=== PATIENT | female | born 1925 | race Caucasian/White ===

== ENCOUNTER 2016-04-14 21:29 | Inpatient (IN) | payer MEDICARE, BC ==
[~2016-04-14] VITALS: Ht 170.2 cm; Wt 105.4 kg
[~2016-04-14 21:29] MED LIST: ACET325T33 PO; CELE200C PO; CLON-379 PO; DIAZ-90 PO; DOCU-144 PO; DOXA1TAB38 PO; DULR PR; ESCI20TA PO; HYDR-3498 PO; IPRA3AMP HHN; LACT20SO2 PO; LISI40TA9 PO; MAGN400O4 PO; MULTI PO; NA P133E3 PR; OXYC-481 PO; RANI150T9 PO; TIZA4TAB PO; TRAZ100T15 PO; WARF6TAB35 PO
[2016-04-14] MEDS ORDERED: NACL 0.9% 3 ML SYG IV SCH (22:00)
[2016-04-14] MEDS ORDERED: BISACODYL 10 MG SUPP PR PRN (22:00)
[2016-04-14] MEDS ORDERED: oxyCODONE 5 MG TAB PO PRN ×2 (22:00)
[2016-04-14] MEDS ORDERED: MAGNESIUM HYDROXIDE 30ML CUP PO PRN (22:00)
[2016-04-14] MEDS ORDERED: HYDROmorphONE 1 MG/ML SYG IV PRN (22:00)
[2016-04-14] MEDS ORDERED: DIPHENHYDRAMINE 25 MG CAP PO PRN (22:00)
[2016-04-14] MEDS ORDERED: ONDANSETRON 4 MG INJ IV PRN (22:00)
[2016-04-14] MEDS ORDERED: NA PHOSPHATE/BIPHOS 133 ML ENEMA PR PRN (22:00)
[2016-04-14 23:30] VITALS: BP 168/72; RESP 20
[2016-04-15] MEDS ORDERED: HYDROmorphONE 2 MG TAB PO PRN (00:30)
[2016-04-15] MEDS: traMADol 50 MG TAB PO SCH ×4 (01:03→17:59)
[2016-04-15] MEDS: DOCUSATE SODIUM 100 MG CAP PO SCH ×3 (01:03→21:10)
[2016-04-15 03:27] LABS: ADD UMIC NO; URINE BILIRUBIN (Dip) NEGATIVE (NEGATIVE); URINE BLOOD (Dip) NEGATIVE (NEGATIVE); URINE COLOR LT. YELLOW (YELLOW); URINE GLUCOSE (Dip) NEGATIVE (NEGATIVE); URINE KETONES (Dip) NEGATIVE (NEGATIVE); URINE LEUKOCYTE ESTERASE (Dip) NEGATIVE (NEGATIVE); URINE NITRITE (Dip) NEGATIVE (NEGATIVE); URINE TOTAL PROTEIN (Dip) NEGATIVE (NEGATIVE); URINE UROBILINOGEN (Dip) 0.2 E.U./dL (0.1-1.0)
[2016-04-15] MEDS: PANTOPRAZOLE (EC) 40 MG TAB PO SCH ×2 (05:44→17:59)
--- NOTE | 2016-04-15 08:05 | HP ---
Date/Time of Note Date/Time of Note DATE: 04/15/16 TIME: 07:50 Assessment/Plan VTE Prophylaxis VTE Prophylaxis Intervention: LMWH Lines/Catheters IV Catheter Type (from [facility]): Saline Lock Urinary Cath still in place: Yes Reason Cath still needed: urinary retention Assessment/Plan Problems: (1) Fall Status: Acute Comment: Patient had a fall yesterday. It is unclear whether the left hip is fractured based on the contrary readings from the other radiologist. We have the disc at and I will have our radiologist review. However to be on the safe side I am also ordering this MRI scan of the left hip to make sure that we do not have a fracture. Given the prior history of postoperative pulmonary emboli that she will be in bed will be using Lovenox. Please note this patient has had several falls and I am again question the wisdom of allowing her to go home with her daughter Qualifiers: Encounter type: initial encounter Qualified Code: W19.XXXA - Fall, initial encounter (2) Morbid obesity Status: Chronic Comment: She will be on a calorie restricted diet Qualifiers: Obesity type: due to excess calories Qualified Code: E66.01 - Morbid obesity due to excess calories (3) Postoperative pulmonary embolism Status: Resolved Comment: Given the history that she will be on Lovenox Qualifiers: Encounter type: subsequent encounter Qualified Code: T81.718D - Postoperative pulmonary embolism, subsequent encounter (4) Diastolic dysfunction Status: Chronic Comment: Noted she is on beta-blockade (5) COPD (chronic obstructive pulmonary disease) Status: Chronic Comment: Noted she is stable Qualifiers: COPD type: emphysema Emphysema type: centrilobular Qualified Code: 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 At this time she will not be on medications although in the future Forteo might be a consideration if she was going to be ambulatory which is unlikely (8) Hyperlipidemia Status: Chronic Comment: The possibility exists that the statins are causing some degree of weakness and weakness based on prior experience with this woman. We will withhold statins for the moment Qualifiers: Hyperlipidemia type: pure hypercholesterolemia Qualified Code: E78.00 - Pure hypercholesterolemia (9) Migraine syndrome Status: Chronic Comment: In active (10) Moderate late onset dysthymic disorder, in partial remission, with anxious distress, with intermittent major depressive episodes, without current episode Status: Chronic Comment: Noted she will be on treatment (11) Chronic pain syndrome Status: Chronic Comment: We will continue with analgesic relief (12) UTI (urinary tract infection) Status: Acute Comment: She has a history of resistant bacteria we will recheck her culture at this time Qualifiers: Urinary tract infection type: acute cystitis Hematuria presence: without hematuria Qualified Code: N30.00 - Acute cystitis without hematuria HPI/ROS Admit Date/Time Admit Date/Time Apr 14, 2016 at 23:16 Hx of Present Illness 89-year-old female who with a history of multiple falls and ambulatory instability who went home against suggestion from the medical team in the past. She was last discharged from our acute rehabilitation unit on March 01, 2016. She had been at home and she reports that her legs gave out from under her and she fell to her left hand side with injury to the area of the hip. She did not have any syncope or loss of consciousness palpitations chest pain or shortness of breath. She was taken by paramedics to [facility]. At that facility initial plain x-rays read the possibility of perhaps a fracture of the hip. Subsequent CT scan was not revealing nor was it of the back. Orthopedics was contacted and and transferred the patient to this facility for care. Please note we not contacted by the orthopedist on our first contact with the nurses calling for orders ROS Constitutional: no complaints Eyes: no complaints ENT: no complaints Respiratory: no complaints Cardiovascular: no complaints Gastrointestinal: no complaints Genitourinary: no complaints Musculoskeletal: back pain, other (Complains of pain in the hip area on the left-hand side) Skin: no complaints Neurologic: no complaints Endocrine: no complaints Lymphatic: no complaints Psychological: anxiety, depression Immunologic: no complaints PMH/Family/Social Past Medical History Grade 1 diastolic dysfunction; morbid obesity; migraine syndrome; osteoporosis; dysthymia with anxiety; chronic pain syndrome; COPD grade 1 Medical History: GERD, high cholesterol, hypertension Past Surgical History Status post blepharoplasty; status post D and C 4; status post 2; status post laparotomy for ruptured ectopic ; status post right shoulder arthroscopy; 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 This that she has had an accelerating rate of falls at home. Alcohol Use: rarely Smoking Status: Former smoker Drug Use: none Exam/Review of Systems Vital Signs Vitals Vital Signs Date Time Temp Pulse Resp B/P Pulse Ox O2 Delivery O2 Flow Rate FiO2 04/14/16 23:30 98.4 71 20 168/72 94 Intake and Output 04/14/16 04/14/16 04/15/16 15:00 23:00 07:00 Intake Total 480 ml Output Total 400 ml Balance 80 ml Exam Exam Awake and alert but sad woman lying in bed Constitutional: alert, oriented Psych: depression Head: atraumatic, normocephalic Eyes: EOMI, nl conjunctiva, nl lids, nl sclera ENMT: mucosa pink and moist, nl external ears & nose, nl lips & teeth, nl nasal mucosa & septum Neck: non-tender, other (Midline trachea no thyromegaly no bruits), supple Respiratory: clear to auscultation, normal air movement Cardiovascular: nl pulses, regular rate and rhythm Gastrointestinal: nl liver, spleen, non-tender, soft Genitourinary - Female: other (Poe catheter in place) Musculoskeletal: other (No clubbing cyanosis or edema please see the dictation of Dr. cee et al for the hip exam) Extremities: normal pulses Neurological: BED AND BREAKFAST OPERATOR II-XII intact, nl mental status, nl speech, nl strength Skin: nl turgor, other (No visible bruises), rash or lesions Lymph: nl lymph nodes Medications Medications Current Medications Tramadol HCl (Ultram) 50 mg Q6 PO Last administered on 04/15/16t 05:44; Admin Dose 50 MG; Start 04/15/16 at 00:00; Stop 04/17/16 at 23:59 Hydromorphone HCl (Dilaudid) 1 mg Q3H PRN IV PAIN LEVEL 8-10; Start 04/14/16 at 22:00 Ondansetron HCl (Zofran Inj) 4 mg Q6H PRN IV NAUSEA AND/OR VOMITING; Start at 22:00 Bisacodyl (Dulcolax Supp) 10 mg Q12H PRN [place] CONSTIPATION; Start 1/20/17 at 22: 00 Magnesium Hydroxide (Milk Of Mag) 30 ml BID PRN PO CONSTIPATION; Start at 22:00 Sodium Biphosphate/ Sodium Phosphate (Fleet Enema) 133 ml DAILY PRN [place] CONSTIPATION; Start 04/14/16 at 22:00 Docusate Sodium (Colace) 100 mg BID PO ; Start 04/14/16 at 21:00 Diphenhydramine HCl (Benadryl) 25 mg Q6H PRN PO PRURITUS; Start 04/14/16 at 22: 00 Pantoprazole (Protonix Tab) 40 mg BID@06,18 PO Last administered on 04/15/16t 05:44; Admin Dose 40 MG; Start 04/15/16 at 06:00 Atenolol (Tenormin) 50 mg DAILY PO ; Start 04/15/16 at 09:00 Trazodone HCl (Desyrel) 100 mg HS PO ; Start 04/15/16 at 21:00 Diazepam (Valium) 5 mg Q12 PO ; Start 04/15/16 at 09:00 Tizanidine HCl (Zanaflex) 4 mg TID PO ; Start 04/15/16 at 09:00 Escitalopram Oxalate (Lexapro) 20 mg DAILY PO ; Start 04/15/16 at 09:00 Hydromorphone HCl (Dilaudid) 2 mg Q4H PRN PO PAIN; Start 04/15/16 at 00:30 GONZALES OSMAN MD Apr 15, 2016 08:00
[2016-04-15] MEDS: DIAZEPAM 5 MG TAB PO SCH ×2 (08:07→21:09)
[2016-04-15] MEDS: ESCITALOPRAM 10 MG TAB PO SCH (08:07)
[2016-04-15] MEDS: TIZANIDINE 4 MG TAB PO SCH ×3 (08:07→21:10)
[2016-04-15 08:13] VITALS: BP 186/77; RESP 72
[2016-04-15] MEDS ORDERED: ATENOLOL 50 MG TAB PO SCH (09:00)
[2016-04-15] MEDS ORDERED: ESCITALOPRAM 10 MG TAB PO SCH (09:00)
[2016-04-15 09:43] VITALS: Ht 170.2 cm; Wt 105.4 kg
[2016-04-15 10:00] VITALS: BP 156/80; PULSE 88; RESP 20
[2016-04-15] MEDS: LISINOPRIL 20 MG TAB PO SCH (10:13)
[2016-04-15] MEDS: ENOXAPARIN 40 MG/0.4 ML SYG SC SCH ×2 (10:22→21:16)
--- NOTE | 2016-04-15 15:12 | HP ---
DATE OF ADMISSION: 04/14/2016 HISTORY OF PRESENT ILLNESS: This is an 89-year-old female who is well known to Dr. Nguyễn and myself, who had a mechanical fall yesterday, out of bed, at home. The patient states that she was in her home hospital bed and she fell out of the bed, landing onto her left side. No KO or head injury was reported. She denies any chest pain or shortness of breath prior to the fall. 911 was called and the patient was transported to [facility]. We received a phone call from the ER that the patient had a hip fracture. We requested imaging; however, the patient and her daughter were demanding to be transferred to [facility]. The patient apparently had a CT done in the ER as well, which was read a negative for any fractures. Transport was arranged and we are now seeing the patient for Orthopedic evaluation. PAST MEDICAL HISTORY: Morbid obesity, postoperative pulmonary embolism, diastolic dysfunction, COPD, essential hypertension, osteoporosis, hyperlipidemia, migraines, chronic pain syndrome, history of UTI. ALLERGIES: PENICILLIN, CLARITHROMYCIN, LATEX, WELL IV DYE. MEDICATIONS: Please refer to the Nurse Med Reconciliation Form. SURGICAL HISTORY: The patient had a revision right TKA at the end of last year , by Dr. Nguyễn. SOCIAL HISTORY: The patient lives at home with her daughter. There have been reports from Home Health agencies that the home is dirty and there is significant hoarding. She denies any smoking or alcohol use. REVIEW OF SYSTEMS: All other systems are negative, except for those described in the HPI. PHYSICAL EXAMINATION: VITAL SIGNS; Initial blood pressure 168/72, heart rate of 71, respirations 20, temperature 98.4, O2 sat is 94% on room air. GENERAL: This is a well-developed, elderly female who is morbidly obese, in no acute distress. HEENT: Normocephalic, atraumatic. NECK: Supple. CARDIOVASCULAR: Regular rate and rhythm. No murmurs, rubs, or gallops. CHEST: Clear to auscultation bilaterally. ABDOMEN: Soft, nontender. BACK: She has no CVA tenderness, no palpable step-offs. MUSCULOSKELETAL: Right knee exam demonstrates her previous incision to be clean , dry, and well healed. Range of motion of the right knee is adequate. There is no ecchymosis or obvious deformities noted. She is holding her hip in slight external rotation; however, there is no shortening. Her right hip range of motion, with flexion and internal and external rotation, is adequate. Exam of the left hip, demonstrates adequate range of motion. There is no shortening or external rotation noted. I am able to flex her left hip, as well as internally and externally rotate it, without any pain. The patient is able to perform a straight-leg raise. The compartments are soft. Neurovascular status is intact distally. NEUROLOGIC: Alert and oriented x4. Grossly intact and nonfocal. SKIN: Otherwise warm, pink, and dry. IMAGING: I was unable to view the x-rays from [facility] ER; however, did find a CT report. The report read no acute displaced fracture or dislocation. There is diffuse osteopenia which limits the assessment of an insufficiency and/or stress fracture. If there is continued clinical concern, recommended a follow up with MRI or bone scan. X-rays of the AP pelvis, as well as AP and lateral of the left hip were obtained at [facility] and reviewed by me. There is no obvious evidence of a fracture or dislocation. Diffuse osteopenia is noted. There is a calcified ossicle on the greater trochanter; however, clinical suspicion for fracture, radiographically, is low. DISCUSSION: This is an 89-year-old female who was transferred to [facility] after a mechanical fall. The patient has had multiple falls in the past and there was concern, as well as a diagnosis by the ER physician at [facility], of a left hip fracture. Radiographically, on plain films, the patient has no evidence of a fracture or dislocation. Clinically, she is able to range the left hip adequately, which also lowers suspicion for any occult fracture. A CT was done at an outside facility, which demonstrated no obvious fractures or dislocations. The study was somewhat limited, per the radiologist due to diffuse osteopenia. Dr. Cassius Juárez did evaluate the patient as well and has ordered an MRI. We will go ahead and perform the MRI, to ensure that there is no occult left hip fracture, although clinical suspicion is low at this time. Additionally, Economic Research Assistant have been consulted. The patient has had multiple falls in the past. She is essentially bed-bound and her living situation is less than ideal. This has been reported by several Home Health staff members in the past, and we want to rule out any sort of negligence at this time. The patient will continue with continue with Lovenox, per Dr. Juárez's order as well as SCDs for DVT prophylaxis, given her history of pulmonary emboli. We will obtain the MRI of the left hip. I will discuss this with Dr. Nguyễn, who is also aware of the patient's fall. Ultimately, we will have to make a decision in regard to the patient's safety going home, or if would be better managed at a [facility] facility. Dictated By: VALDEMAR HITCHCOCK for FREDRICK HUGHES/ANU Conf#: [id number] DID#: [id number] MTDD
--- NOTE | 2016-04-15 18:57 | RADRPT ---
PROCEDURE: MRI of the left hip CLINICAL INDICATION: Fall with pain in the left hip. TECHNIQUE: Noncontrast MRI of the left hip, with axial, sagittal and coronal images. T1-weighted, T2-weighted, proton density and fat saturation techniques were employed. COMPARISON: Plain film left hip dated 04/15/2016. FINDINGS: No acute fracture dislocation within the left hip. No evident avascular necrosis. Left hip joint c ompartment is substantially preserved. Soft tissues unremarkable. Remaining partially visualized osseous structures of the pelvis, sacrum and right hip are also witho ut acute fracture. Partially visualized right hip with suspected mild joint compartment narrowing and small marginal os teophytes. IMPRESSION: No acute fracture. RPTAT: [facility] Physician Espinoza Date Time Electronically viewed and signed by Physician Espinoza on 04/15/2016 18:56 RS/
[2016-04-15 20:26] VITALS: BP 143/64; RESP 20
--- NOTE | 2016-04-15 20:46 | RADRPT ---
PROCEDURE: XR Left Hip. CLINICAL INDICATION: Left hip injury with suspected fracture. TECHNIQUE: Single AP view of the left hip. COMPARISON: None. FINDINGS: Demineralization limits evaluation of fine osseous detail. Normal joint alignment is identified. No acute fracture or osseous lesion is identified. There are no significant degenerative changes in the hip. Vascular calcifications. Soft tissues otherwise unremarkable. IMPRESSION: Demineralization, and otherwise, no evident acute fracture in the left hip. RPTAT: [facility] Physician Espinoza Date Time Electronically viewed and signed by Physician Espinoza on 04/15/2016 20:46 RS/
--- NOTE | 2016-04-15 20:47 | RADRPT ---
PROCEDURE: Pelvis x-ray CLINICAL INDICATION: Suspected fracture. TECHNIQUE: Single AP view of the pelvis performed. COMPARISON: 10/18/2015. FINDINGS: Demineralization limits evaluation of fine osseous detail. No fracture or osseous lesion identified. There are no significant degenerative changes. Uterine fibroids are likely present. Possible impacted stool in the rectum. Soft tissues otherwise unremarkable. IMPRESSION: No acute fracture or subluxation. RPTAT: [facility] Physician Espinoza Date Time Electronically viewed and signed by Physician Espinoza on 04/15/2016 20:47 RS/
[2016-04-15] MEDS ORDERED: traZODone 100 MG TAB PO SCH (21:00)
[2016-04-15] MEDS: traZODone 100 MG TAB PO SCH (21:10)
[2016-04-15] MEDS: METOPROLOL (XL) 50 MG TAB PO SCH (21:11)
--- NOTE | 2016-04-15 21:51 | RADRPT ---
PROCEDURE: XR Left Hip. CLINICAL INDICATION: Fracture. TECHNIQUE: AP and frog lateral views of the left hip were performed. COMPARISON: 04/15/2016 FINDINGS: There is mild demineralization and normal alignment. No acute fracture or osseous lesion is identified. There are no significant degenerative changes in the hip. The soft tissues are unremarkable. Arteriovascular calcifications are identified. IMPRESSION: No acute fracture or dislocation. Mild osteopenia. Hip fractures may be occult to x-ray imaging and CT or MRI may be considered for further evaluation if there is high clinical suspicion for fracture. RPTAT:AAJJ Janett De Paz Physician Date Time Electronically viewed and signed by Physician Nils on 04/15/2016 21:51 PATRICK/
--- NOTE | 2016-04-15 21:54 | RADRPT ---
PROCEDURE: XR Knee. CLINICAL INDICATION: s/p fall, h/o right TKA TECHNIQUE: AP, lateral and oblique view of the right knee were obtained. The images reviewed on a PACS workstation. COMPARISON: None. FINDINGS: Intact total knee prosthesis. Osseous fragments along the posterior tibia were present on the prior x-rays postoperative series 02/08/2016 no new fracture or dislocation. IMPRESSION: Intact total knee prosthesis. No new or acute fracture. RPTAT:AAJJ Physician Nils Date Time Electronically viewed and signed by Physician Nils on 04/15/2016 21:53 PATRICK/
[2016-04-16] MEDS: traMADol 50 MG TAB PO SCH ×4 (03:40→19:02)
[2016-04-16] MEDS: PANTOPRAZOLE (EC) 40 MG TAB PO SCH ×2 (06:40→19:01)
--- NOTE | 2016-04-16 07:15 | PN ---
Date/Time of Note Date/Time of Note DATE: 04/16/16 TIME: 07:12 Assessment/Plan VTE Prophylaxis VTE Prophylaxis Intervention: LMWH, SCD's Lines/Catheters IV [facility] Saline Lock Urinary Cath still in place: Yes Reason Cath still needed: other (indicate) (Removing it today) Assessment/Plan Problems: (1) History of pulmonary embolism Status: Resolved Comment: This is a historical note. As I now know that she does not have a hip fracture I am going to discontinue the Lovenox she will use SCDs except for while she is ambulating her physical therapy is working with her (2) Chronic pain syndrome Status: Chronic Comment: Noted and stable. (3) Moderate late onset dysthymic disorder, in partial remission, with anxious distress, with intermittent major depressive episodes, without current episode Status: Chronic Comment: She is on medications for this. (4) Hyperlipidemia Status: Chronic Comment: As noted in the original history and physical Qualifiers: Hyperlipidemia type: pure hypercholesterolemia Qualified Code: E78.00 - Pure hypercholesterolemia (5) Essential hypertension Status: Chronic Comment: Well-controlled (6) Hypertension Status: Chronic Comment: As above Qualifiers: Hypertension type: essential hypertension Qualified Code: I10 - Essential hypertension (7) Diastolic dysfunction Status: Chronic Comment: She is on beta-blockade which is the appropriate maneuver here. Given the history of reported lung disease a cardioselective beta phuc metoprolol is the best choice with second choice being nebivolol Subjective 24 Hr Interval Summary Free Text/Dictation Patient reports she is tired and has some left-sided pain. Constitutional: no complaints Eyes: no complaints ENT: no complaints Respiratory: no complaints Cardiovascular: no complaints Gastrointestinal: no complaints Musculoskeletal: other (Left-sided pain at the hip) Exam/Review of Systems Vital Signs Vitals Vital Signs Date Time Temp Pulse Resp B/P Pulse Ox O2 Delivery O2 Flow Rate FiO2 04/15/16 20:26 98.7 64 20 143/64 91 Intake and Output 04/15/16 04/15/16 04/16/16 15:00 23:00 07:00 Intake Total 1300 ml 120 ml Output Total 725 ml 400 ml Balance 575 ml -280 ml Exam Constitutional: alert, oriented Neck: non-tender, supple Respiratory: clear to auscultation, normal air movement Cardiovascular: nl pulses, regular rate and rhythm Gastrointestinal: nl liver, spleen, non-tender, soft Medications Medications Current Medications Tramadol HCl (Ultram) 50 mg Q6 PO Last administered on 04/16/16 03:40; Admin Dose 50 MG; Start 04/15/16 at 00:00; Stop 04/17/16 at 23:59 Hydromorphone HCl (Dilaudid) 1 mg Q3H PRN IV PAIN LEVEL 8-10; Start 04/14/16 at 22:00 Ondansetron HCl (Zofran Inj) 4 mg Q6H PRN IV NAUSEA AND/OR VOMITING; Start at 22:00 Bisacodyl (Dulcolax Supp) 10 mg Q12H PRN [place] CONSTIPATION; Start 04/14/16 at 22: 00 Magnesium Hydroxide (Milk Of Mag) 30 ml BID PRN PO CONSTIPATION; Start at 22:00 Sodium Biphosphate/ Sodium Phosphate (Fleet Enema) 133 ml DAILY PRN [place] CONSTIPATION; Start 04/14/16 at 22:00 Docusate Sodium (Colace) 100 mg BID PO Last administered on 04/15/16 21:10; Admin Dose 100 MG; Start 04/14/16 at 21:00 Diphenhydramine HCl (Benadryl) 25 mg Q6H PRN PO PRURITUS; Start 04/14/16 at 22: 00 Pantoprazole (Protonix Tab) 40 mg BID@06,18 PO Last administered on 04/16/16 06:40; Admin Dose 40 MG; Start 04/15/16 at 06:00 Diazepam (Valium) 5 mg Q12 PO Last administered on 04/15/16 21:09; Admin Dose 5 MG; Start 04/15/16 at 09:00 Tizanidine HCl (Zanaflex) 4 mg TID PO Last administered on 04/15/16 21:10; Admin Dose 4 MG; Start 04/15/16 at 09:00 Escitalopram Oxalate (Lexapro) 20 mg DAILY PO Last administered on 04/15/16 08 :07; Admin Dose 20 MG; Start 04/15/16 at 09:00 Hydromorphone HCl (Dilaudid) 2 mg Q4H PRN PO PAIN; Start 04/15/16 at 00:30 Enoxaparin Sodium (Lovenox) 40 mg BID SC Last administered on 04/15/16 21:16; Admin Dose 40 MG; Start 04/15/16 at 09:00 Metoprolol Succinate (Toprol Xl) 50 mg BID PO Last administered on 04/15/16 21 :11; Admin Dose 50 MG; Start 04/15/16 at 21:00 Lisinopril (Zestril) 20 mg DAILY PO Last administered on 04/15/16 10:13; Admin Dose 20 MG; Start 04/15/16 at 09:00 Trazodone HCl (Desyrel) 150 mg HS PO Last administered on 04/15/16 21:10; Admin Dose 150 MG; Start 04/15/16 at 21:00 GONZALES OSMAN MD Apr 16, 2016 07:14
[2016-04-16 08:12] VITALS: BP 151/63; RESP 18
[2016-04-16] MEDS: ESCITALOPRAM 10 MG TAB PO SCH (09:13)
[2016-04-16] MEDS: DOCUSATE SODIUM 100 MG CAP PO SCH ×2 (09:14→21:25)
[2016-04-16] MEDS: LISINOPRIL 20 MG TAB PO SCH (09:14)
[2016-04-16] MEDS: METOPROLOL (XL) 50 MG TAB PO SCH ×2 (09:14→21:25)
[2016-04-16] MEDS: DIAZEPAM 5 MG TAB PO SCH ×2 (09:14→21:00)
[2016-04-16] MEDS: TIZANIDINE 4 MG TAB PO SCH ×3 (09:15→21:26)
--- NOTE | 2016-04-16 11:35 | PN ---
Date/Time of Note Date/Time of Note DATE: 04/16/16 TIME: 11:24 Assessment/Plan Lines/Catheters IV Catheter Type (from Nrsg): Saline Lock Poe in Place (from Nrsg): Yes Assessment/Plan Assessment/Plan Stable s/p fall, no evidence of hip fracture -encouraged blood draw, physical therapy, and medical compliance as she has been refusing everything -daughter continues to be very difficult. top and trim worker will speak with the daughter as there is concern about patient safety at home. APS report filed. -from an orthopedic standpoint, there is no evidence of fracture and she is stable for d/c or transfer -spoke to Dr. Nguyễn who is aware and agrees to the treatment plan -d/c planning home versus other terminal gauger care facility. TBD after ABSTRACT CLERK eval and speaking with medicine team Subjective 24 Hr Interval Summary No acute overnight events. XR, MRI, CT all negative for hip fx. Daughter continues to be difficult. Patient complains of pain all over and is still refusing labs, PT or any other therapeutive modalities. APS filed with medical social worker Exam/Review of Systems Vital Signs Vitals Vital Signs Date Time Temp Pulse Resp B/P Pulse Ox O2 Delivery O2 Flow Rate FiO2 04/16/16 08:12 99.0 70 18 151/63 90 Intake and Output 04/15/16 04/15/16 04/16/16 15:00 23:00 07:00 Intake Total 1300 ml 120 ml Output Total 725 ml 400 ml Balance 575 ml -280 ml Exam Free Text/Dictation Hip flexion with internal/external rotation within normal limits 4/5 Quadriceps, Tibialis Anterior, EHL, Gastroc, Soleus, Peroneals Normal sensation Palpable DT/PT, CR <2 sec No distal edema VALDEMAR MARTIN PA-C Apr 16, 2016 11:35
[2016-04-16 11:45] VITALS: BP 148/64; PULSE 64; RESP 16
[2016-04-16 12:07] LABS: POTASSIUM 4.4 mmol/L (3.5-5.1)
[2016-04-16 12:09] LABS: CREATININE 1.21 mg/dl (0.44-1.00)
[2016-04-16 12:11] LABS: CALCIUM 10.3 mg/dl (8.4-10.2)
[2016-04-16 12:12] LABS: HEMATOCRIT 40.8 % (37.0-47.0); HEMOGLOBIN 13.3 g/dl (12.0-16.0)
[2016-04-16 19:28] VITALS: BP 134/59; RESP 20
[2016-04-16] MEDS: traZODone 100 MG TAB PO SCH (21:00)
[2016-04-16 23:48] VITALS: BP 129/58; RESP 18
[2016-04-17] MEDS: traMADol 50 MG TAB PO SCH ×5 (05:46→20:56)
[2016-04-17] MEDS: PANTOPRAZOLE (EC) 40 MG TAB PO SCH ×2 (05:46→18:00)
[2016-04-17 08:15] VITALS: BP 123/48; RESP 18
--- NOTE | 2016-04-17 08:39 | PDOCDIS ---
Discharge Instructions DIAGNOSIS Discharge Diagnosis: left hip pain s/p fall CONDITION Patient Condition: Guarded HOME CARE INSTRUCTIONS: Diet Instructions: Regular ACTIVITY: Activity Restrictions: Slowly Increase Activity Rest between Activity Avoid heavy lifting Do not operate Machinery Do not operate Power Tool Avoid Heavy Housework Bathing Restrictions: Shower FOLLOW UP/APPOINTMENTS Appointments follow up with Dr. Nguyễn in the office next week VALDEMAR MARTIN PA-C Apr 17, 2016 08:39
--- NOTE | 2016-04-17 08:45 | PN ---
Date/Time of Note Date/Time of Note DATE: 04/17/16 TIME: 08:40 Assessment/Plan VTE Prophylaxis VTE Prophylaxis Intervention: SCD's Lines/Catheters IV Catheter Type (from Nrs): Saline Lock Urinary Cath still in place: Yes Reason Cath still needed: other (indicate) (Discontinue today) Assessment/Plan Problems: (1) History of pulmonary embolism Status: Resolved Comment: Noted no activity (2) Chronic pain syndrome Status: Chronic Comment: Patient remains on analgesic (3) Moderate late onset dysthymic disorder, in partial remission, with anxious distress, with intermittent major depressive episodes, without current episode Status: Chronic Comment: Remains on antidepressant therapy. Her home social situation is a major issue social work is trying to work with her (4) Hyperlipidemia Status: Chronic Comment: On statin Qualifiers: Hyperlipidemia type: pure hypercholesterolemia Qualified Code: E78.00 - Pure hypercholesterolemia (5) Essential hypertension Status: Chronic Comment: Controlled on medicine (6) Diastolic dysfunction Status: Chronic Comment: Controlled on medication (7) COPD (chronic obstructive pulmonary disease) Status: Chronic Comment: Stable Qualifiers: COPD type: emphysema Emphysema type: centrilobular Qualified Code: J43.2 - Centrilobular emphysema (8) Fall Status: Acute Comment: Review by orthopedics as well as the medical team that there is no fracture and she is stable for discharge from an acute care hospital setting Qualifiers: Encounter type: initial encounter Qualified Code: W19.XXXA - Fall, initial encounter Subjective 24 Hr Interval Summary Free Text/Dictation Patient initially denies having seen me before but when I questioned her regarding data I have personally referred to her she does recall this Respiratory: no complaints Cardiovascular: no complaints Gastrointestinal: no complaints Exam/Review of Systems Vital Signs Vitals Vital Signs Date Time Temp Pulse Resp B/P Pulse Ox O2 Delivery O2 Flow Rate FiO2 04/17/16 08:15 98.3 56 18 123/48 96 04/16/16 20:00 Nasal Cannula 2.0 Intake and Output 04/16/16 04/16/16 04/17/16 15:00 23:00 07:00 Intake Total 400 ml 480 ml Output Total 600 ml 800 ml Balance -200 ml -320 ml Exam Constitutional: alert, oriented Neck: non-tender, supple Respiratory: clear to auscultation, normal air movement Cardiovascular: nl pulses, regular rate and rhythm Gastrointestinal: nl liver, spleen, non-tender, soft Results Result Diagram: 04/16/16 1130 04/16/16 1130 Results 24 hrs Laboratory Tests Test 04/16/16 11:30 Anion Gap 13 Blood Urea Nitrogen 32 H Calcium Level 10.3 H Carbon Dioxide Level 29 Chloride Level 101 Creatinine 1.21 H Glucose Level 110 Hematocrit 40.8 Hemoglobin 13.3 Potassium Level 4.4 Sodium Level 139 Medications Medications Current Medications Tramadol HCl (Ultram) 50 mg Q6 PO Last administered on 04/17/16 05:46; Admin Dose 50 MG; Start 04/15/16 at 00:00; Stop 04/17/16 at 23:59 Hydromorphone HCl (Dilaudid) 1 mg Q3H PRN IV PAIN LEVEL 8-10; Start 04/14/16 at 22:00 Ondansetron HCl (Zofran Inj) 4 mg Q6H PRN IV NAUSEA AND/OR VOMITING; Start at 22:00 Bisacodyl (Dulcolax Supp) 10 mg Q12H PRN [place] CONSTIPATION; Start 04/14/16 at 22: 00 Magnesium Hydroxide (Milk Of Mag) 30 ml BID PRN PO CONSTIPATION; Start at 22:00 Sodium Biphosphate/ Sodium Phosphate (Fleet Enema) 133 ml DAILY PRN [place] CONSTIPATION; Start 04/14/16 at 22:00 Docusate Sodium (Colace) 100 mg BID PO Last administered on 04/16/16 21:25; Admin Dose 100 MG; Start 04/14/16 at 21:00 Diphenhydramine HCl (Benadryl) 25 mg Q6H PRN PO PRURITUS; Start 04/14/16 at 22: 00 Pantoprazole (Protonix Tab) 40 mg BID@06,18 PO Last administered on 04/17/16 05:46; Admin Dose 40 MG; Start 04/15/16 at 06:00 Diazepam (Valium) 5 mg Q12 PO Last administered on 04/16/16 09:14; Admin Dose 5 MG; Start 04/15/16 at 09:00 Tizanidine HCl (Zanaflex) 4 mg TID PO Last administered on 04/16/16 21:26; Admin Dose 4 MG; Start 04/15/16 at 09:00 Escitalopram Oxalate (Lexapro) 20 mg DAILY PO Last administered on 04/16/16 09 :13; Admin Dose 20 MG; Start 04/15/16 at 09:00 Hydromorphone HCl (Dilaudid) 2 mg Q4H PRN PO PAIN; Start 04/15/16 at 00:30 Metoprolol Succinate (Toprol Xl) 50 mg BID PO Last administered on 04/16/16 21 :25; Admin Dose 50 MG; Start 04/15/16 at 21:00 Lisinopril (Zestril) 20 mg DAILY PO Last administered on 04/16/16 09:14; Admin Dose 20 MG; Start 04/15/16 at 09:00 Trazodone HCl (Desyrel) 150 mg HS PO Last administered on 04/15/16 21:10; Admin Dose 150 MG; Start 04/15/16 at 21:00 GONZALES OSMAN MD Apr 17, 2016 08:45
--- NOTE | 2016-04-17 08:48 | PN ---
Date/Time of Note Date/Time of Note DATE: 04/17/16 TIME: 08:45 Assessment/Plan Lines/Catheters IV Catheter Type (from Nrsg): Saline Lock Poe in Place (from Nrsg): Yes Assessment/Plan Assessment/Plan Stable s/p fall, no evidence of hip fracture -patient seen and evaluated with Dr. Nguyễn -patient is medically stable from d/c from an orthopedic standpoint -OOB with PT -Will d/c patient home today. Will work with social problems specialist to determine pt d/c home versus [facility] facility Subjective 24 Hr Interval Summary Doing satisfactory. No acute overnight events. EKG unremarkable. Patient is still refusing PT or blood draw. Exam/Review of Systems Vital Signs Vitals Vital Signs Date Time Temp Pulse Resp B/P Pulse Ox O2 Delivery O2 Flow Rate FiO2 04/17/16 08:15 98.3 56 18 123/48 96 04/16/16 20:00 Nasal Cannula 2.0 Intake and Output 04/16/16 04/16/16 04/17/16 15:00 23:00 07:00 Intake Total 400 ml 480 ml Output Total 600 ml 800 ml Balance -200 ml -320 ml Exam Free Text/Dictation No deformities 4/5 Quadriceps, Tibialis Anterior, EHL, Gastroc, Soleus, Peroneals Normal sensation Palpable DT/PT, CR <2 sec No distal edema Results Result Diagram: 04/16/16 1130 04/16/16 1130 VALDEMAR MARTIN PA-C Apr 17, 2016 08:48
[2016-04-17] MEDS ORDERED: CEFAZOLIN 1 GM/50 ML (PMX) 50 ML IVPB SCH (09:00)
--- NOTE | 2016-04-17 09:54 | CONS ---
DATE OF ADMISSION: 04/14/2016 DATE OF CONSULTATION: 04/17/2016 HISTORY OF PRESENT ILLNESS: The patient is an 89-year-old woman well known to me who had a peripros thetic fracture around her right total knee arthroplasty which required revision with a distal femor al replacement. This was revised about 2 months ago. It was revised for some hyperextension instab ility. We lengthened her leg and increased the thickness of the polyethylene insert, which stabiliz ed her knee, but left her with a leg length discrepancy which I knew would occur preoperatively. Th e patient was initially at the acute rehab facility here at [facility] recovering and then was discharged to a residential facility and then to home. She has been home under the care of her daughter and receiving 2 to 3 times a week home physical therapy. The daughter has rip led our office multiple times over the last 4 to 6 weeks, indicating that her mother is struggling w ith rehabilitation. We have asked to have the patient come in to our office on multiple occasions a nd the daughter has been unable to bring the patient to our office. There have been no reported fev ers, chills or wound drainage. A few days ago the patient apparently had a fall at home and was augustina en emergently to [facility]. I was away on vacation. My physician assistant accounting manager commun icated with the emergency room physician who indicated there may be a fracture of the left hip. CT scan and x-rays were reportedly negative, but the patient was nonetheless transported to [facility] where she has been for the last few days. I returned from my vacation today and s een the patient this morning in conjunction with Dr. Paul her consumer loan specialist and hospitalist. The daugh ter is not at the bedside but I did speak to the daughter on the phone this morning. The patient cantu s been refusing physical therapy here at the hospital. Medical workup has been unremarkable. X-ray and MRI of the left hip demonstrate no fracture. The patient is currently lying in bed comfortably this morning and knows who I am and is complaining of no pain. PHYSICAL EXAMINATION: GENERAL: Obese woman in no distress. She is alert and oriented x3. VITAL SIGNS: Her temperature is 98.3. Vital signs are stable. EXTREMITIES: The right lower extremity is longer than the left by about 1.5 cm. Both hips are supp le with 100 degrees of flexion, 35 degrees of external rotation, 15 degrees of internal rotation, no pain or irritability. The right knee has a well-healed midline scar with no redness or warmth. Kathy huddleston does lie with the right lower extremity slightly externally rotated, but when I bring her knee int o full extension the foot is pointing towards the ceiling is in neutral position. Range of motion o f the right knee is 0 to about 85 degrees. There is no varus or valgus instability. The left knee has no effusion, warmth or redness and has no pain with passive range of motion and is stable to rick us and valgus stress testing, anterior drawer and Krzysztof testing. NEUROVASCULAR: Motor strength is 5/5 in the quadriceps, tibialis anterior, extensor hallucis longus , gastroc-soleus, and peroneals bilaterally. Sensation is intact to light touch throughout both lowe r extremities. There are 2+ palpable dorsalis pedis and posterior tibial pulses, with capillary refi ll less than 2 seconds in all 5 digits bilaterally. There is no distal edema. IMAGING: X-rays of the pelvis and left hip demonstrate no obvious fracture. There are no subluxati ons, dislocations or degenerative changes. An MRI of the left hip demonstrates no fracture, bony le eddie, osteonecrosis or degenerative changes. X-rays of the right knee show that the distal femoral replacement remains in good position with no evidence of loosening or fracture around the implant. There are no subluxations or dislocations. LABORATORY DATA: [facility] laboratories reveal a hematocrit of 40.8. ASSESSMENT AND PLAN: 1. Status post fall with no evidence of left hip fracture. 2. Status post revision right total knee arthroplasty. DISCUSSION: She seems to be doing well with no signs of fracture. I spoke with the daughter and ex plained that at this point there is no indication to keep the patient here in the hospital. She nee ds to continue with physical therapy for gait training and ambulatory support and transfer training from bed to wheelchair. We will plan to discharge her today back to home or to a residential fa cility if she has insurance authorization to go to a residential facility for more rehabilitatio n. I have spoken with Dr. Paul who feels there are no medical indications to keep the patient here either. She will follow up with me in the office in 2 weeks for an exam and x-ray. I have indicat ed to the daughter that the patient should be using a walker for ambulatory support and using the sh oe lift on the left side to compensate for the leg length discrepancy. Dictated By: FREDRICK PEREZ MD EZ/NTS Conf#: [id number] DID#: [id number] CC: GONZALES PAUL MD;*EndCC*
--- NOTE | 2016-04-17 09:59 | RADRPT ---
PROCEDURE: XR Tibia and Fibula. CLINICAL INDICATION: s/p fall, h/o right TKA, pain TECHNIQUE: AP, lateral and oblique views of the right tibia and fibula were obtained. COMPARISON: 04/15/2016 x-ray knee FINDINGS: The patient is status post right total knee arthroplasty. Hardware appears intact and in appropriat e position. There is fragmentation along the posterior-superior tibia which is better seen on prior examination. There is patellar resurfacing, and a remaining medial femoral condyle fragment. Ther e is no evidence for acute fracture. There is a small plantar calcaneal spur. There is distal tibia and hind foot demineralization which may reflect disuse osteopenia.. IMPRESSION: Status post right total knee arthroplasty. No evidence for acute fracture or interval change from p rior exam. RPTAT: EE .Ck Moser MD, MD Date Time Electronically viewed and signed by .Ck Moser MD, MD on 04/17/2016 09:58 .T/
--- NOTE | 2016-04-17 10:01 | RADRPT ---
PROCEDURE: XR right femur. CLINICAL INDICATION: Pain/fall. TECHNIQUE: AP and lateral views are available for review. COMPARISON: No comparison available FINDINGS: There is no change in the constrained total knee replacement with a long femoral and tibial stems. T here is no evidence of loosening of the prosthesis. There is diffuse osteopenia. No acute fracture o r dislocation is seen.No osseous lesions are identified. The soft tissues are unremarkable . there is arterial vascular calcification. IMPRESSION: Diffuse osteopenia No change in constrained total knee replacement with a long femoral and tibial stems. No acute fracture identified RPTAT: HGDB .Ruy More MD, Date Time Electronically viewed and signed by .Ruy More MD, on 04/17/2016 10:00 .B/
[2016-04-17] MEDS: DOCUSATE SODIUM 100 MG CAP PO SCH ×2 (10:31→20:54)
[2016-04-17] MEDS: ESCITALOPRAM 10 MG TAB PO SCH (10:31)
[2016-04-17] MEDS: TIZANIDINE 4 MG TAB PO SCH ×3 (10:32→20:56)
[2016-04-17] MEDS: METOPROLOL (XL) 50 MG TAB PO SCH ×2 (10:32→20:56)
[2016-04-17] MEDS: DIAZEPAM 5 MG TAB PO SCH ×2 (10:33→20:56)
[2016-04-17] MEDS: LISINOPRIL 20 MG TAB PO SCH (10:33)
[2016-04-17 11:35] LABS: HEMATOCRIT 40.4 % (37.0-47.0); HEMOGLOBIN 13.3 g/dl (12.0-16.0)
[2016-04-17 11:58] LABS: POTASSIUM 4.3 mmol/L (3.5-5.1)
[2016-04-17 12:01] LABS: CREATININE 1.05 mg/dl (0.44-1.00)
[2016-04-17 12:02] LABS: CALCIUM 10.1 mg/dl (8.4-10.2)
--- NOTE | 2016-04-17 17:48 | PN ---
Date/Time of Note Date/Time of Note DATE: 04/17/16 TIME: 17:44 Assessment/Plan VTE Prophylaxis VTE Prophylaxis Intervention: anti-embolic stocking Lines/Catheters IV Catheter Type (from Nrsg): Saline Lock Urinary Cath still in place: Yes Subjective 24 Hr Interval Summary Free Text/Dictation mrs ribera is well known to us. recent injury at home with no xray or clinical evidence for new fracture. will be discharged in am with home care and ortho follow up Musculoskeletal: back pain, bone/joint pain, neck pain (very sore all over) Exam/Review of Systems Vital Signs Vitals Vital Signs Date Time Temp Pulse Resp B/P Pulse Ox O2 Delivery O2 Flow Rate FiO2 04/17/16 08:15 98.3 56 18 123/48 96 04/16/16 20:00 Nasal Cannula 2.0 Intake and Output 04/16/16 04/16/16 04/17/16 15:00 23:00 07:00 Intake Total 400 ml 480 ml Output Total 600 ml 800 ml Balance -200 ml -320 ml Results Result Diagram: 04/17/16 1115 04/17/16 1115 Results 24 hrs Laboratory Tests Test 04/17/16 11:15 Anion Gap 12 Blood Urea Nitrogen 31 H Calcium Level 10.1 Carbon Dioxide Level 29 Chloride Level 102 Creatinine 1.05 H Glucose Level 133 Hematocrit 40.4 Hemoglobin 13.3 Potassium Level 4.3 Sodium Level 139 Medications Medications Current Medications Tramadol HCl (Ultram) 50 mg Q6 PO Last administered on 04/17/16t 14:28; Admin Dose 50 MG; Start 04/15/16 at 00:00; Stop 04/17/16 at 23:59 Hydromorphone HCl (Dilaudid) 1 mg Q3H PRN IV PAIN LEVEL 8-10; Start 04/14/16 at 22:00 Ondansetron HCl (Zofran Inj) 4 mg Q6H PRN IV NAUSEA AND/OR VOMITING; Start at 22:00 Bisacodyl (Dulcolax Supp) 10 mg Q12H PRN [place] CONSTIPATION; Start 04/14/16 at 22: 00 Magnesium Hydroxide (Milk Of Mag) 30 ml BID PRN PO CONSTIPATION; Start at 22:00 Sodium Biphosphate/ Sodium Phosphate (Fleet Enema) 133 ml DAILY PRN [place] CONSTIPATION; Start 04/14/16 at 22:00 Docusate Sodium (Colace) 100 mg BID PO Last administered on 04/17/16 10:31; Admin Dose 100 MG; Start 04/14/16 at 21:00 Diphenhydramine HCl (Benadryl) 25 mg Q6H PRN PO PRURITUS; Start 04/14/16 at 22: 00 Pantoprazole (Protonix Tab) 40 mg BID@,18 PO Last administered on 04/17/16 05:46; Admin Dose 40 MG; Start 04/15/16 at 06:00 Diazepam (Valium) 5 mg Q12 PO Last administered on 04/17/16 10:33; Admin Dose 5 MG; Start 04/15/16 at 09:00 Tizanidine HCl (Zanaflex) 4 mg TID PO Last administered on 04/17/16 14:28; Admin Dose 4 MG; Start 04/15/16 at 09:00 Escitalopram Oxalate (Lexapro) 20 mg DAILY PO Last administered on 04/17/16 10 :31; Admin Dose 20 MG; Start 04/15/16 at 09:00 Hydromorphone HCl (Dilaudid) 2 mg Q4H PRN PO PAIN; Start 04/15/16 at 00:30 Metoprolol Succinate (Toprol Xl) 50 mg BID PO Last administered on 04/17/16 10 :32; Admin Dose 50 MG; Start 04/15/16 at 21:00 Lisinopril (Zestril) 20 mg DAILY PO Last administered on 04/17/16 10:33; Admin Dose 20 MG; Start 04/15/16 at 09:00 Trazodone HCl (Desyrel) 150 mg HS PO Last administered on 04/15/16 21:10; Admin Dose 150 MG; Start 04/15/16 at 21:00 STEVEN CRAWFORD MD Apr 17, 2016 17:48
[2016-04-17 19:29] VITALS: BP 141/66; RESP 18
[2016-04-17 20:30] VITALS: BP 149/78
[2016-04-17] MEDS: traZODone 100 MG TAB PO SCH (20:57)
--- NOTE | 2016-04-17 22:39 | RADRPT ---
Vent Rate: 59 bpm RR Interval: 0 msec [place] Interval: 216 msec QRS Duration: 108 msec QT Interval: 420 msec QTC Interval: 415 msec P-R-T [place]: 62 - 3 - 73 degrees Sinus bradycardia with 1st degree AV block Septal infarct , age undetermined Abnormal ECG Electronically Signed By: Isak Hastings [id number]
[2016-04-18] VITALS: BP 141/64
[2016-04-18 05:46] LABS: POTASSIUM 4.7 mmol/L (3.5-5.1)
[2016-04-18 05:47] LABS: HEMATOCRIT 42.5 % (37.0-47.0); HEMOGLOBIN 13.8 g/dl (12.0-16.0)
[2016-04-18 05:49] LABS: CALCIUM 10.5 mg/dl (8.4-10.2); CREATININE 1.06 mg/dl (0.44-1.00)
[2016-04-18] MEDS: PANTOPRAZOLE (EC) 40 MG TAB PO SCH ×2 (06:00→17:28)
[2016-04-18 08:04] VITALS: BP 149/65; RESP 18
[2016-04-18] MEDS: ESCITALOPRAM 10 MG TAB PO SCH (08:26)
[2016-04-18] MEDS: TIZANIDINE 4 MG TAB PO SCH ×3 (08:26→21:27)
[2016-04-18] MEDS: DIAZEPAM 5 MG TAB PO SCH ×2 (08:26→21:27)
[2016-04-18] MEDS: DOCUSATE SODIUM 100 MG CAP PO SCH ×2 (08:26→21:27)
[2016-04-18] MEDS: METOPROLOL (XL) 50 MG TAB PO SCH ×2 (08:27→21:29)
[2016-04-18] MEDS: LISINOPRIL 20 MG TAB PO SCH (08:27)
--- NOTE | 2016-04-18 10:25 | PN ---
Date/Time of Note Date/Time of Note DATE: 04/18/16 TIME: 10:22 Assessment/Plan Lines/Catheters IV Catheter Type (from Nrsg): Saline Lock Poe in Place (from Nrsg): Yes Assessment/Plan Assessment/Plan Stable for d/c s/p fall at home. No evidence of hip fracture -Additional XR reviewed, all within normal limits -OOB with PT -d/c planning. Awaiting final authorization from home care physical therapist to d/c home -follow up with the office with Dr. Nguyễn in 2 weeks Subjective 24 Hr Interval Summary No acute overnight events. Reviewed additional XR that were taken which also show no evidence of fracture or dislocation. Awaiting d/c planning per home care physical therapist. Exam/Review of Systems Vital Signs Vitals Vital Signs Date Time Temp Pulse Resp B/P Pulse Ox O2 Delivery O2 Flow Rate FiO2 04/18/16 09:10 Nasal Cannula 2.0 04/18/16 08:04 98.4 59 18 149/65 95 Intake and Output 04/17/16 04/17/16 04/18/16 15:00 23:00 07:00 Intake Total 770 ml 800 ml Output Total 1000 ml 900 ml Balance -230 ml -100 ml Exam Free Text/Dictation Right Knee: Incision clean, dry, and intact without redness or drainage 4/5 Quadriceps, Tibialis Anterior, EHL, Gastroc, Soleus, Peroneals Normal sensation Palpable DT/PT, CR <2 sec No distal edema Left Hip: 4/5 Quadriceps, Tibialis Anterior, EHL, Gastroc, Soleus, Peroneals Normal sensation Palpable DT/PT, CR <2 sec No distal edema Results Result Diagram: 04/18/16 0434 04/18/16 0434 VALDEMAR MARTIN PA-C Apr 18, 2016 10:25
--- NOTE | 2016-04-18 13:14 | PN ---
Date/Time of Note Date/Time of Note DATE: 04/18/16 TIME: 13:09 Assessment/Plan VTE Prophylaxis VTE Prophylaxis Intervention: SCD's Lines/Catheters IV Catheter Type (from Nrs): Saline Lock Urinary Cath still in place: Yes Reason Cath still needed: other (indicate) Assessment/Plan Problems: (1) Fall Status: Acute Comment: She is stable and there is no evidence of any fractures. She is actually not complaining of pain from the area that was reportedly injured when she fell she is complaining of the chronic back pain which is been a very long- term issue. She is receiving adequate analgesia. Attempts are being made to get her to work with physical therapy. Please note that the vital signs reported in the chart by the nursing staff are all normotensive Qualifiers: Encounter type: initial encounter Qualified Code: W19.XXXA - Fall, initial encounter (2) Back pain Status: Chronic Comment: This is been a long-term problem and has not changed there are no acute features going on with this she is gone through multiple orthopedic evaluations Qualifiers: Back pain location: low back pain Chronicity: chronic Back pain laterality: bilateral Sciatica presence: without sciatica Qualified Code: M54.5 - Chronic bilateral low back pain without sciatica (3) Diastolic dysfunction Status: Chronic Comment: Noted and stable on treatment (4) Hypertension Status: Chronic Comment: Noted and stable on treatment. Qualifiers: Hypertension type: essential hypertension Qualified Code: I10 - Essential hypertension (5) Moderate late onset dysthymic disorder, in partial remission, with anxious distress, with intermittent major depressive episodes, without current episode Status: Chronic Comment: This remains an issue for this patient. Unfortunately we have some issues about the home environment which are requiring us to once again fill out an APS referral. Assessment/Plan From medical standpoint this patient is ready to be discharged to a lower level of care. Subjective 24 Hr Interval Summary Constitutional: no complaints Eyes: no complaints ENT: no complaints Respiratory: no complaints Cardiovascular: no complaints (She specifically denies any chest pain palpitations chest pressure or cramping in the chest.) Gastrointestinal: no complaints Musculoskeletal: back pain (Patient reports chronic back pain which is unchanged.) Neurologic: no complaints Exam/Review of Systems Vital Signs Vitals Vital Signs Date Time Temp Pulse Resp B/P Pulse Ox O2 Delivery O2 Flow Rate FiO2 04/18/16 09:10 Nasal Cannula 2.0 04/18/16 08:04 98.4 59 18 149/65 95 Intake and Output 04/17/16 04/17/16 04/18/16 15:00 23:00 07:00 Intake Total 770 ml 800 ml Output Total 1000 ml 900 ml Balance -230 ml -100 ml Exam Constitutional: alert, oriented Respiratory: clear to auscultation, normal air movement Cardiovascular: nl pulses, regular rate and rhythm Gastrointestinal: nl liver, spleen, non-tender, soft Results Result Diagram: 04/18/16 0434 04/18/16 0434 Results 24 hrs Laboratory Tests Test 04/18/16 04:34 Anion Gap 14 Blood Urea Nitrogen 31 H Calcium Level 10.5 H Carbon Dioxide Level 31 Chloride Level 101 Creatinine 1.06 H Glucose Level 102 Hematocrit 42.5 Hemoglobin 13.8 Potassium Level 4.7 Sodium Level 141 Medications Medications Current Medications Hydromorphone HCl (Dilaudid) 1 mg Q3H PRN IV PAIN LEVEL 8-10; Start 04/14/16 at 22:00 Ondansetron HCl (Zofran Inj) 4 mg Q6H PRN IV NAUSEA AND/OR VOMITING; Start at 22:00 Bisacodyl (Dulcolax Supp) 10 mg Q12H PRN [place] CONSTIPATION; Start 04/14/16 at 22: 00 Magnesium Hydroxide (Milk Of Mag) 30 ml BID PRN PO CONSTIPATION; Start at 22:00 Sodium Biphosphate/ Sodium Phosphate (Fleet Enema) 133 ml DAILY PRN [place] CONSTIPATION; Start 04/14/16 at 22:00 Docusate Sodium (Colace) 100 mg BID PO Last administered on 04/18/16 08:26; Admin Dose 100 MG; Start 04/14/16 at 21:00 Diphenhydramine HCl (Benadryl) 25 mg Q6H PRN PO PRURITUS; Start 04/14/16 at 22: 00 Pantoprazole (Protonix Tab) 40 mg BID@06,18 PO Last administered on 04/17/16 05:46; Admin Dose 40 MG; Start 04/15/16 at 06:00 Diazepam (Valium) 5 mg Q12 PO Last administered on 04/18/16 08:26; Admin Dose 5 MG; Start 04/15/16 at 09:00 Tizanidine HCl (Zanaflex) 4 mg TID PO Last administered on 04/18/16 12:14; Admin Dose 4 MG; Start 04/15/16 at 09:00 Escitalopram Oxalate (Lexapro) 20 mg DAILY PO Last administered on 04/18/16 08 :26; Admin Dose 20 MG; Start 04/15/16 at 09:00 Hydromorphone HCl (Dilaudid) 2 mg Q4H PRN PO PAIN; Start 04/15/16 at 00:30 Metoprolol Succinate (Toprol Xl) 50 mg BID PO Last administered on 04/18/16 08 :27; Admin Dose 50 MG; Start 04/15/16 at 21:00 Lisinopril (Zestril) 20 mg DAILY PO Last administered on 04/18/16 08:27; Admin Dose 20 MG; Start 04/15/16 at 09:00 Trazodone HCl (Desyrel) 150 mg HS PO Last administered on 04/17/16 20:57; Admin Dose 150 MG; Start 04/15/16 at 21:00 GONZALES OSMAN MD Apr 18, 2016 13:14
[2016-04-18] MEDS: traMADol 50 MG TAB PO PRN (17:28)
[2016-04-18 18:03] VITALS: BP 158/74; RESP 19
[2016-04-18 19:56] VITALS: BP 142/66; RESP 18
[2016-04-18] MEDS: traZODone 100 MG TAB PO SCH (21:27)
[2016-04-18 21:33] VITALS: BP 162/78; PULSE 64
[2016-04-18 23:14] VITALS: BP 117/64; PULSE 56
[2016-04-19 05:17] LABS: HEMATOCRIT 41.1 % (37.0-47.0); HEMOGLOBIN 13.6 g/dl (12.0-16.0)
[2016-04-19 05:28] LABS: POTASSIUM 4.3 mmol/L (3.5-5.1)
[2016-04-19 05:30] LABS: CREATININE 0.89 mg/dl (0.44-1.00)
[2016-04-19 05:31] LABS: CALCIUM 10.3 mg/dl (8.4-10.2)
[2016-04-19] MEDS: PANTOPRAZOLE (EC) 40 MG TAB PO SCH ×2 (05:50→17:46)
[2016-04-19 07:54] VITALS: BP 140/62; RESP 29
[2016-04-19] MEDS: ESCITALOPRAM 10 MG TAB PO SCH (08:52)
[2016-04-19] MEDS: TIZANIDINE 4 MG TAB PO SCH ×3 (08:52→20:27)
[2016-04-19] MEDS: DOCUSATE SODIUM 100 MG CAP PO SCH ×2 (08:52→20:28)
[2016-04-19] MEDS: DIAZEPAM 5 MG TAB PO SCH ×2 (08:52→20:25)
[2016-04-19] MEDS: LISINOPRIL 20 MG TAB PO SCH (08:53)
[2016-04-19] MEDS: METOPROLOL (XL) 50 MG TAB PO SCH ×2 (08:53→20:27)
[2016-04-19] MEDS: traMADol 50 MG TAB PO PRN ×2 (10:41→20:27)
--- NOTE | 2016-04-19 14:06 | PN ---
Date/Time of Note Date/Time of Note DATE: 04/19/16 TIME: 14:04 Assessment/Plan VTE Prophylaxis VTE Prophylaxis Intervention: heparin Lines/Catheters IV [facility]from [facility] Saline Lock Urinary Cath still in place: Yes Reason Cath still needed: other (indicate) Assessment/Plan Problems: (1) Fall Status: Acute Comment: Patient has had a fall but fortunately does not have any fractures. She is ready for discharge. The patient and her daughter have appealed to Medicare were awaiting the outcome of that. At this time she is doing well although she is not cooperating with physical therapy Qualifiers: Encounter type: initial encounter Qualified Code: W19.XXXA - Fall, initial encounter (2) Morbid obesity Status: Chronic Comment: On calorie restriction Qualifiers: Obesity type: due to excess calories Qualified Code: E66.01 - Morbid obesity due to excess calories (3) Hypertension Status: Chronic Comment: Well-controlled Qualifiers: Hypertension type: essential hypertension Qualified Code: I10 - Essential hypertension (4) Diastolic dysfunction Status: Chronic Comment: Stable on current medication regimen (5) Moderate late onset dysthymic disorder, in partial remission, with anxious distress, with intermittent major depressive episodes, without current episode Status: Chronic Comment: On treatment (6) Chronic pain syndrome Status: Chronic Comment: Stable on treatment without offered complaints Subjective 24 Hr Interval Summary Free Text/Dictation Patient sitting up in bed drinking coffee. States "what are you doing here" patient reports she is here because Dr. cee has things for her to do Constitutional: no complaints Respiratory: no complaints Cardiovascular: no complaints Gastrointestinal: no complaints Genitourinary: no complaints Exam/Review of Systems Vital Signs Vitals Vital Signs Date Time Temp Pulse Resp B/P Pulse Ox O2 Delivery O2 Flow Rate FiO2 04/19/16 07:54 98.0 62 29 140/62 96 04/18/16 20:00 Nasal Cannula 2.0 Intake and Output 04/18/16 04/18/16 04/19/16 15:00 23:00 07:00 Intake Total 720 ml 580 ml Output Total 600 ml 400 ml Balance 120 ml 180 ml Exam Constitutional: alert, oriented Respiratory: clear to auscultation, normal air movement Cardiovascular: nl pulses, regular rate and rhythm Gastrointestinal: nl liver, spleen, non-tender, soft Results Result Diagram: 04/19/16 0430 04/19/16 0430 Results 24 hrs Laboratory Tests Test 04/19/16 04:30 Anion Gap 12 Blood Urea Nitrogen 27 H Calcium Level 10.3 H Carbon Dioxide Level 30 Chloride Level 102 Creatinine 0.89 Glucose Level 108 Hematocrit 41.1 Hemoglobin 13.6 Potassium Level 4.3 Sodium Level 140 Medications Medications Current Medications Hydromorphone HCl (Dilaudid) 1 mg Q3H PRN IV PAIN LEVEL 8-10; Start 04/14/16 at 22:00 Ondansetron HCl (Zofran Inj) 4 mg Q6H PRN IV NAUSEA AND/OR VOMITING; Start at 22:00 Bisacodyl (Dulcolax Supp) 10 mg Q12H PRN MA CONSTIPATION; Start 04/14/16 at 22: 00 Magnesium Hydroxide (Milk Of Mag) 30 ml BID PRN PO CONSTIPATION; Start at 22:00 Sodium Biphosphate/ Sodium Phosphate (Fleet Enema) 133 ml DAILY PRN MA CONSTIPATION; Start 04/14/16 at 22:00 Docusate Sodium (Colace) 100 mg BID PO Last administered on 04/19/16 08:52; Admin Dose 100 MG; Start 04/14/16 at 21:00 Diphenhydramine HCl (Benadryl) 25 mg Q6H PRN PO PRURITUS; Start 04/14/16 at 22: 00 Pantoprazole (Protonix Tab) 40 mg BID@06,18 PO Last administered on 04/18/16 17:28; Admin Dose 40 MG; Start 04/15/16 at 06:00 Diazepam (Valium) 5 mg Q12 PO Last administered on 04/19/16 08:52; Admin Dose 5 MG; Start 04/15/16 at 09:00 Tizanidine HCl (Zanaflex) 4 mg TID PO Last administered on 04/19/16 12:49; Admin Dose 4 MG; Start 04/15/16 at 09:00 Escitalopram Oxalate (Lexapro) 20 mg DAILY PO Last administered on 04/19/16 08 :52; Admin Dose 20 MG; Start 04/15/16 at 09:00 Hydromorphone HCl (Dilaudid) 2 mg Q4H PRN PO PAIN; Start 04/15/16 at 00:30 Metoprolol Succinate (Toprol Xl) 50 mg BID PO Last administered on 04/19/16 08 :53; Admin Dose 50 MG; Start 04/15/16 at 21:00 Lisinopril (Zestril) 20 mg DAILY PO Last administered on 04/19/16 08:53; Admin Dose 20 MG; Start 04/15/16 at 09:00 Trazodone HCl (Desyrel) 150 mg HS PO Last administered on 04/18/16 21:27; Admin Dose 150 MG; Start 04/15/16 at 21:00 Tramadol HCl (Ultram) 50 mg Q6H PRN PO PAIN LEVEL 4-6 Last administered on 04/19 10:41; Admin Dose 50 MG; Start 04/18/16 at 17:30 GONZALES OSMAN MD Apr 19, 2016 14:06
[2016-04-19 20:22] VITALS: BP 148/68; RESP 20
[2016-04-19] MEDS: traZODone 100 MG TAB PO SCH (20:25)
[2016-04-20] MEDS: PANTOPRAZOLE (EC) 40 MG TAB PO SCH (06:41)
[2016-04-20 07:40] VITALS: BP 194/84; RESP 57
--- NOTE | 2016-04-20 08:40 | PN ---
Date/Time of Note Date/Time of Note DATE: 04/20/16 TIME: 08:39 Assessment/Plan VTE Prophylaxis VTE Prophylaxis Intervention: other Lines/Catheters IV [facility] ([facility] Saline Lock Urinary Cath still in place: No Assessment/Plan Chief Complaint/Hosp Course This creates an unusual situation. The patient was actually admitted under the auspices of Dr. cee. As she is dismissed our group specifically while awake competent not having received any type of mind altering or sensorium clouding medications we must sign off Problems: Subjective 24 Hr Interval Summary Free Text/Dictation Patient reports that she wishes to terminate medical relationship with our group that would be Dr. Shah, Beverly, Susanne etc. Exam/Review of Systems Vital Signs Vitals Vital Signs Date Time Temp Pulse Resp B/P Pulse Ox O2 Delivery O2 Flow Rate FiO2 04/20/16 07:40 98.8 59 57 194/84 95 04/18/16 20:00 Nasal Cannula 2.0 Intake and Output 04/19/16 04/19/16 04/20/16 15:00 23:00 07:00 Intake Total 730 ml 400 ml Output Total 800 ml 460 ml Balance -70 ml -60 ml Exam Refuses examination Results Result Diagram: 04/19/16 0430 04/19/16 0430 Medications Medications Current Medications Hydromorphone HCl (Dilaudid) 1 mg Q3H PRN IV PAIN LEVEL 8-10; Start 04/14/16 at 22:00 Ondansetron HCl (Zofran Inj) 4 mg Q6H PRN IV NAUSEA AND/OR VOMITING; Start at 22:00 Bisacodyl (Dulcolax Supp) 10 mg Q12H PRN [place] CONSTIPATION; Start 04/14/16 at 22: 00 Magnesium Hydroxide (Milk Of Mag) 30 ml BID PRN PO CONSTIPATION; Start at 22:00 Sodium Biphosphate/ Sodium Phosphate (Fleet Enema) 133 ml DAILY PRN PA CONSTIPATION; Start 04/14/16 at 22:00 Docusate Sodium (Colace) 100 mg BID PO Last administered on 04/19/16t 20:28; Admin Dose 100 MG; Start 04/14/16 at 21:00 Diphenhydramine HCl (Benadryl) 25 mg Q6H PRN PO PRURITUS; Start 04/14/16 at 22: 00 Pantoprazole (Protonix Tab) 40 mg BID@06,18 PO Last administered on 04/20/16 06:41; Admin Dose 40 MG; Start 04/15/16 at 06:00 Diazepam (Valium) 5 mg Q12 PO Last administered on 04/19/16 20:25; Admin Dose 5 MG; Start 04/15/16 at 09:00 Tizanidine HCl (Zanaflex) 4 mg TID PO Last administered on 04/19/16 20:27; Admin Dose 4 MG; Start 04/15/16 at 09:00 Escitalopram Oxalate (Lexapro) 20 mg DAILY PO Last administered on 04/19/16 08 :52; Admin Dose 20 MG; Start 04/15/16 at 09:00 Hydromorphone HCl (Dilaudid) 2 mg Q4H PRN PO PAIN; Start 04/15/16 at 00:30 Metoprolol Succinate (Toprol Xl) 50 mg BID PO Last administered on 04/19/16 20 :27; Admin Dose 50 MG; Start 04/15/16 at 21:00 Lisinopril (Zestril) 20 mg DAILY PO Last administered on 04/19/16 08:53; Admin Dose 20 MG; Start 04/15/16 at 09:00 Trazodone HCl (Desyrel) 150 mg HS PO Last administered on 04/19/16 20:25; Admin Dose 150 MG; Start 04/15/16 at 21:00 Tramadol HCl (Ultram) 50 mg Q6H PRN PO PAIN LEVEL 4-6 Last administered on 04/19 20:27; Admin Dose 50 MG; Start 04/18/16 at 17:30 GONZALES OSMAN MD Apr 20, 2016 08:40
[2016-04-20] MEDS: LISINOPRIL 20 MG TAB PO SCH (09:36)
[2016-04-20] MEDS: TIZANIDINE 4 MG TAB PO SCH ×2 (09:37→14:01)
[2016-04-20] MEDS: METOPROLOL (XL) 50 MG TAB PO SCH (09:37)
[2016-04-20] MEDS: DIAZEPAM 5 MG TAB PO SCH (09:37)
[2016-04-20] MEDS: ESCITALOPRAM 10 MG TAB PO SCH (09:38)
[2016-04-20] MEDS: DOCUSATE SODIUM 100 MG CAP PO SCH (09:38)
--- NOTE | 2016-04-20 11:05 | PN ---
Date/Time of Note Date/Time of Note DATE: 04/20/16 TIME: 11:03 Assessment/Plan Lines/Catheters IV Catheter Type (from Nrsg): Saline Lock Poe in Place (from Nrsg): No Assessment/Plan Assessment/Plan s/p fall at home, stable for d/c -spoke with personal care worker who states patient will go home today -does not meet medicare criteria for ARU and has used her allocated SNF visits for the calendar year -d/c home today Subjective 24 Hr Interval Summary No acute overnight events. Stable for discharge today per rifle case repairer. Daughter continues to be difficult with nursing staff, physician staff, and personal care worker about going home. Exam/Review of Systems Vital Signs Vitals Vital Signs Date Time Temp Pulse Resp B/P Pulse Ox O2 Delivery O2 Flow Rate FiO2 04/20/16 07:40 98.8 59 57 194/84 95 04/18/16 20:00 Nasal Cannula 2.0 Intake and Output 04/19/16 04/19/16 04/20/16 15:00 23:00 07:00 Intake Total 730 ml 400 ml Output Total 800 ml 460 ml Balance -70 ml -60 ml Exam Free Text/Dictation Knee: Thigh soft 5/5 Quadriceps, Tibialis Anterior, EHL, Gastroc, Soleus, Peroneals Normal sensation Palpable DT/PT, CR <2 sec No distal edema Hip: 5/5 Quadriceps, Tibialis Anterior, EHL, Gastroc, Soleus, Peroneals Normal sensation Palpable DT/PT, CR <2 sec No distal edema Results Result Diagram: 04/19/16 0430 04/19/16 0430 VALDEMAR MARTIN PA-C Apr 20, 2016 11:05
--- NOTE | 2016-04-22 06:30 | DS ---
DATE OF ADMISSION: 04/14/2016 DATE OF DISCHARGE: 04/20/2016 CONDITION ON DISCHARGE: Guarded but stable. ADMITTING DIAGNOSIS: Rule out left hip fracture. DISCHARGE DIAGNOSIS: Left hip pain status post fall. HOSPITAL COURSE: This is an 89-year-old female who is well known to us who had a mechanical fall at home on 04/14/2016. The patient was transferred via ambulance to [facility] where she was diagnosed with a left hip fracture. The patient's family member requested that she be transferred over to [facility] for definitive management. On 04/15/2016, the patient was directly admitted to [address] for definitive management and treatment. X-rays, MRI and CT scans all were obtained of the left hip and showed no evidence of fracture, however. The patient remained stable throughout her hospital course. The daughter was very difficult throughout. The patient refused daily blood draws as well as physical therapy. On day 3, the patient was deemed clinically stable for discharge from a medical standpoint. Case workers as well as social workers evaluated and consulted in regards to the patient's safety at home. Family said she has had multiple falls at home and they were concerned if she is safe going back. household worker did file an APS report which will be followed up once the patient goes home. She was ultimately discharged on 04/16/2016. Her daughter then filed a Medicare appeal, was requesting continued admission or transfer to a SNF. The patient utilized all of her allocated SNF days for the year. There is no medical reason for her to stay in the hospital any longer. One 04/20/2016, the patient was discharged home via ambulance. LABORATORY ANALYSIS: Upon discharge on 04/19/2016, hemoglobin 13.6, hematocrit 41.1. Chemistry panel: Sodium 140, potassium 4.3, BUN 27, creatinine 0.99, glucose 108, calcium 10.3. DISCHARGE MEDICATIONS: Please review the nurse's medical reconciliation. The patient is to resume all her normal home medications. DISCHARGE INSTRUCTIONS: The patient will be discharged home stable via ambulance in guarded condition. She is to resume her normal diet. Activities include weightbearing as tolerated on the left hip as well as her right knee. She is to resume all of her normal home medications. The patient is to call the office or return to the emergency room for any concerns in regards to the left hip or right knee. She is to follow up in the office with Dr. Nguyễn in 2 weeks. FOLLOWUP: The patient is to follow up with Dr. Nguyễn in the office in 2 weeks from discharge. Dictated By: VALDEMAR HITCHCOCK for FREDRICK HUGHES/ANU Conf#: [id number] DID#: [id number] MTDD
== END 2016-04-20 16:35 | disposition home health service (06) | DRG 914 ==
LOC: MS1 23:16
PROVIDERS: ADMIT Orthopaedic Surgery; ATTEND Orthopaedic Surgery
DX: S79.912A Unspecified injury of left hip, initial encounter (principal); I50.32 Chronic diastolic (congestive) heart failure; N39.0 Urinary tract infection, site not specified; M25.552 Pain in left hip; W06.XXXA Fall from bed, initial encounter; Y92.003 Bedroom of unspecified non-institutional (private) residence as the place of occurrence of the external cause; E66.01 Morbid (severe) obesity due to excess calories; J44.9 Chronic obstructive pulmonary disease, unspecified; I10 Essential (primary) hypertension; M81.0 Age-related osteoporosis without current pathological fracture; M85.861 Other specified disorders of bone density and structure, right lower leg; G43.909 Migraine, unspecified, not intractable, without status migrainosus; E78.5 Hyperlipidemia, unspecified; F34.1 Dysthymic disorder; G89.4 Chronic pain syndrome; F41.8 Other specified anxiety disorders; Z68.36 Body mass index [BMI] 36.0-36.9, adult; Z91.81 History of falling; Z86.711 Personal history of pulmonary embolism; Z96.651 Presence of right artificial knee joint; Z88.3 Allergy status to other anti-infective agents; Z88.0 Allergy status to penicillin; Z91.040 Latex allergy status; Z86.73 Personal history of transient ischemic attack (TIA), and cerebral infarction without residual deficits; Z87.440 Personal history of urinary (tract) infections
CPT/HCPCS: 72170; 73500; 73550; 73560; 73590; 73721; 80048; 81003; 85014; 85018; 87081; 87086; 93005; 97110; 97161; 97530; J0690; J1650

== ENCOUNTER → 2016-06-14 | Outpatient (CLI) | payer MEDICARE, BC ==
[~2016-06-14] MED LIST changes: -OXYC-481 PO; -WARF6TAB35 PO
--- NOTE | 2016-06-14 12:11 | RADRPT ---
PROCEDURE: Right knee radiographs. CLINICAL INDICATION: Right knee pain. Postop. TECHNIQUE: Three views. Weight bearing. Frontal, lateral, and patellar view. COMPARISON: 04/15/2016. FINDINGS: There is no fracture. There is lateral dislocation of the patella. Vascular calcifications are present consistent with atherosclerosis. 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 The arthroplasty has a long liliya m in the femur and a long stem in the tibia. There is no lytic or blastic lesion. There is no joint effusion. IMPRESSION: 1. Lateral dislocation of the patella. 2. Atherosclerosis. 3. Postoperative appearance of the right knee. RPTAT: QQ .Rex Black MD, MD Date Time Electronically viewed and signed by .Rex Black MD, MD on 06/14/2016 12:10 .R/
== END | disposition home or self-care (01) ==
LOC: HKI 09:13
PROVIDERS: ATTEND Orthopaedic Surgery
DX: T84.092D Other mechanical complication of internal right knee prosthesis, subsequent encounter (principal); Z96.651 Presence of right artificial knee joint

== ENCOUNTER 2016-11-30 09:05 | Inpatient (IN) | payer MEDICARE, BC ==
[~2016-11-30] VITALS: Ht 162.6 cm; Wt 90.9 kg
[~2016-11-30 09:05] MED LIST changes: +BISA10SU75 PR; -DULR PR
[2016-11-30] MEDS ORDERED: morphine 4 MG/ML VIAL IV STA (09:37)
[2016-11-30] MEDS ORDERED: ONDANSETRON 4 MG INJ IV STA (09:37)
[2016-11-30] MEDS ORDERED: SOD CHLORIDE 0.9% 1,000 ML IV STA (09:37)
[2016-11-30 10:40] LABS: BASOPHILS % 0.3 % (0.0-2.0); EOSINOPHILS # 0.1 10^3/ul (0.0-0.5); EOSINOPHILS % 0.7 % (0.0-7.0); HEMATOCRIT 49.9 % (37.0-47.0); HEMOGLOBIN 16.5 g/dl (12.0-16.0); LYMPHOCYTES # 1.1 10^3/ul (0.8-2.9); LYMPHOCYTES % 8.6 % (15.0-51.0); MEAN CORPUSCULAR HEMOGLOBIN 29.8 pg (29.0-33.0); MEAN CORPUSCULAR HGB CONC 33.1 g/dl (32.0-37.0); MEAN CORPUSCULAR VOLUME 90.2 fl (82.0-101.0); MEAN PLATELET VOLUME 10.8 fl (7.4-10.4); MONOCYTE # 0.8 10^3/ul (0.3-0.9); MONOCYTES % 6.2 % (0.0-11.0); NEUTROPHILS % 83.6 % (39.0-77.0); PLATELET COUNT 180 10^3/UL (140-415); RED BLOOD COUNT 5.53 10^6/ul (4.20-5.40); RED CELL DISTRIBUTION WIDTH 13.4 % (11.5-14.5); WHITE BLOOD COUNT 12.4 10^3/ul (4.8-10.8)
--- NOTE | 2016-11-30 10:46 | ERA ---
ER Documentation Chief Complaint Date/Time DATE: 11/30/16 TIME: 10:40 Chief Complaint mechanical fall getting out of bed deformity to right extremity cms intact HPI 89-year-old woman brought in by EMS from home for right leg fracture status post mechanical fall when she rolled out of bed this morning. She denies head or neck injury and does have a history of prior left hip fracture and multiple previous falls. She was unable to ambulate after today's fall and sustained pain and swelling after the injury. Patient denies chest pain or shortness of breath, no paresis or paresthesias, no headache or blurry vision. ROS All systems reviewed and are negative except as per history of present illness. Medications Home Meds Active Scripts Na Phos,M-B/Na Phos,Di-Ba (Bl Enema Single) 135 Ml Enema, 133 ML MN DAILY Y for CONSTIPATION for 1 Day, ENEMA Prov:MILARGOS KLEIN MD 10/26/15 Ipratropium-Albuterol (Ipratropium-Albuterol) 0.5-3 Mg/3 Ml Ampul.neb, 3 ML HHN Q4H RESP THERAPY Y for SHORTNESS OF BREATH for 1 Day Prov:MILAGROS KLEIN MD 10/26/15 Hydrocodone Bit/Acetaminophen (Anexsia 5-325 Mg Tablet) 1 Tab Tablet, 2 TAB PO Q6H Y for SEVERE PAIN LEVEL 7-10 for 1 Day, TAB Prov:MILAGROS KLEIN MD 10/26/15 Docusate Sodium* (Colace*) 100 Mg Capsule, 100 MG PO BID for 1 Day, CAP Prov:MILAGROS KLEIN MD 10/26/15 Celecoxib* (Celebrex*) 200 Mg Capsule, 200 MG PO DAILY for 1 Day, CAP Prov:MILAGROS KLEIN MD 10/26/15 Bisacodyl* (Bisacodyl*) 10 Mg Supp, 10 MG MN Q12H Y for CONSTIPATION for 1 Day, SUPP Prov:MILAGROS KLEIN MD 10/26/15 Acetaminophen* (Tylenol*) 325 Mg Tablet, 650 MG PO Q4H Y for PAIN AND OR ELEVATED TEMP for 1 Day, TAB Prov:MILAGROS KLEIN MD 10/26/15 Reported Medications Magnesium Hydroxide* (Milk Of Magnesia*) 400 Mg/5 Ml Oral.susp, 30 ML PO DAILY Y for CONSTIPATION, ML 02/08/16 Clonidine Hcl* (Clonidine Hcl*) 0.1 Mg Tab, 0.1 MG PO Q6 Y for ELEVATED BLOOD PRESSURE, TAB 02/08/16 Doxazosin Mesylate* (Cardura*) 1 Mg Tablet, 1 MG PO QHS, #30 TAB 02/08/16 Multivitamins* (Theragran*) 1 Tab Tab, 1 TAB PO DAILY, TAB 02/08/16 Ranitidine Hcl* (Zantac*) 150 Mg Tablet, 150 MG PO BID, #60 TAB 02/08/16 Lisinopril* (Lisinopril*) 40 Mg Tablet, 40 MG PO DAILY, #30 TAB 02/08/16 Lactulose* (Lactulose*) 20 Gm/30 Ml Solution, 20 GM PO DAILY Y for CONSTIPATION , ML 02/08/16 Diazepam* (Valium*) 5 Mg Tablet, 5 MG PO QHS, TAB 10/18/15 Escitalopram Oxalate* (Lexapro*) 20 Mg Tablet, 20 MG PO DAILY, #30 TAB 10/18/15 Tizanidine Hcl* (Tizanidine Hcl*) 4 Mg Tablet, 4 MG PO TID Y for SPASTICITY, TAB 10/18/15 Trazodone Hcl* (Trazodone Hcl*) 100 Mg Tablet, 100 MG PO QHS, #30 TAB 05/12/15 Allergies Allergies: Coded Allergies: Iodinated Contrast Media - IV Dye (Verified Allergy, Intermediate, ) severe burning Penicillins (Verified Allergy, Unknown, 02/08/16) clarithromycin (Verified Allergy, Unknown, 02/08/16) latex (Verified Allergy, Unknown, 02/08/16) PMhx/Soc Morbid obesity, postoperative pulmonary embolism, diastolic dysfunction, COPD, essential hypertension, osteoporosis, hyperlipidemia, migraines, chronic pain syndrome, history of UTI, Prior left hip fracture, multiple allergies including : PENICILLIN, CLARITHROMYCIN, LATEX, WELL Contrast dye. History of Surgery: Yes (KNEE SX, RT LEG SX) Anesthesia Reaction: No Hx Neurological Disorder: No Hx Respiratory Disorders: No Hx Cardiac Disorders: Yes (HTN) Hx Psychiatric Problems: No Hx Miscellaneous Medical Probl: No Hx Alcohol Use: No Hx Substance Use: No Hx Tobacco Use: No Smoking Status: Former smoker FmHx Family History: No diabetes Physical Exam Vitals Vital Signs Date Time Temp Pulse Resp B/P Pulse Ox O2 Delivery O2 Flow Rate FiO2 11/30/16 12:30 86 24 137/75 98 Room Air 11/30/16 11:00 81 21 145/101 94 Room Air 11/30/16 10:05 89 17 141/86 98 Room Air 11/30/16 09:25 99.1 89 22 161/100 99 Physical Exam GENERAL: Well-developed, well-nourished, well-hydrated,, Mild discomfort, appears dehydrated, afebrile HEENT: Moist mucous membranes, pink conjunctiva, no cervical spine tenderness or step-off deformities, no goiter, no jaundice or icterus, extraocular movements intact without pain. No submandibular induration, and no pharyngeal erythema NEURO: Alert and oriented 3, cranial nerves II through XII intact bilaterally, pupils equal round reactive to light, no focal deficits or facial asymmetry, sensation intact distally Strength 5/5 in upper and lower extremities bilaterally CARDIAC: Regular rate and rhythm, no murmurs rubs or gallops LUNGS: Clear bilaterally no wheezing crackles or stridor ABDOMEN: Soft nontender, no guarding, no rigidity, no rebound, no psoas sign no obturator sign. Normoactive bowel sounds SKIN: Warm and dry to touch, no abrasions, contusions, or hematomas, no lacerations, no ecchymosis, no target lesions, and without ulcers EXTREMITIES: Bony contusion and deformity to the anterior right lower leg consistent with fracture hematoma. Calves bilaterally symmetrical, distal pulses equal bilateral, skin intact no active bleeding. PSYCH: Normal affect without agitation or irritability Result Diagram: 11/30/1695411/30/16 0955 Results 24 hrs Laboratory Tests Test 11/30/16 09:55 11/30/16 10:37 11/30/16 11:55 White Blood Count 12.410^3/ul Red Blood Count 5.5310^6/ul Hemoglobin 16.5g/dl Hematocrit 49.9% Mean Corpuscular Volume 90.2fl Mean Corpuscular Hemoglobin 29.8pg Mean Corpuscular Hemoglobin Concent 33.1g/dl Red Cell Distribution Width 13.4% Platelet Count 01403^3/UL Mean Platelet Volume 10.8fl Neutrophils % 83.6% Lymphocytes % 8.6% Monocytes % 6.2% Eosinophils % 0.7% Basophils % 0.3% Nucleated Red Blood Cells % 0.0/100WBC Neutrophils # (Manual) 10.410^3/ul Lymphocytes # 1.110^3/ul Monocytes # 0.810^3/ul Eosinophils # 0.110^3/ul Basophils # 0.010^3/ul Nucleated Red Blood Cells # 0.010^3/ul Sodium Level 138mmol/L Potassium Level 3.8mmol/L Chloride Level 103mmol/L Carbon Dioxide Level 29mmol/L Anion Gap 10 Blood Urea Nitrogen 11mg/dl Creatinine 0.63mg/dl Glucose Level 151mg/dl Calcium Level 10.2mg/dl Total Bilirubin 0.4mg/dl Direct Bilirubin 0.00mg/dl Indirect Bilirubin 0.4mg/dl Aspartate Amino Transf (AST/SGOT) 37IU/L Alanine Aminotransferase (ALT/SGPT) 14IU/L Alkaline Phosphatase 113IU/L Troponin I < 0.012ng/ml Total Protein 6.7g/dl Albumin 3.4g/dl Globulin 3.30g/dl Albumin/Globulin Ratio 1.03 Lipase 44U/L Prothrombin Time Pending Prothrombin Time Ratio 1.1 INR International Normalized Ratio 1.05 Urine Color YELLOW Urine Clarity CLEAR Urine pH 7.0 Urine Specific [place] 1.011 Urine Ketones NEGATIVEmg/dL Urine Nitrite NEGATIVEmg/dL Urine Bilirubin NEGATIVEmg/dL Urine Urobilinogen 2+mg/dL Urine Leukocyte Esterase NEGATIVELeu/ul Urine Hemoglobin NEGATIVEmg/dL Urine Glucose NEGATIVEmg/dL Urine Total Protein NEGATIVEmg/dl Current Medications Medications (Trade) Dose Ordered Sig/Joe Route PRN Reason Start Time Stop Time Status Last Admin Dose Admin Sodium Chloride (NS) 1,000 ml @ 1,000 mls/hr Q1H STAT IV 11/30/16 09:37 11/30/16 10:36 DC 11/30/16 10:17 Morphine Sulfate (morphine) 4 mg ONCE STAT IV 11/30/16 09:37 11/30/16 09:40 DC 11/30/16 10:18 Ondansetron HCl (Zofran Inj) 4 mg ONCE STAT IV 11/30/16 09:37 11/30/16 09:40 DC 11/30/16 10:17 Procedures/MDM IV line was established patient was placed on awake overnight monitor rhythm strip revealed a sinus rhythm at about 90 bpm with upright P and T waves. Patient was afebrile. I administered 1 L normal saline intravenously, morphine 4 mg IV, Zofran 4 mg IV with good response. Pain resolved. EKG performed, read by me revealed a normal sinus rhythm at 92 bpm, left axis deviation, and a right ventricular conduction delay with a QRS duration of 112 ms, no concerning ST elevations or depressions noted. One AP view of the chest performed, read by me reveals no acute infiltrates, normal mediastinum, sharp costophrenic and cardiac borders, no air under the diaphragm. Otherwise unremarkable chest x-ray. One view x-ray of the left pelvis performed, read by me revealed chronic nondisplaced fracture to the left proximal femur, no acute fracture or dislocation noted. Three-view x-ray of the right knee was performed, read by me, no acute fracture or dislocation at the knee noted there is hardware in place positive for right tibia shaft fracture just distal to the implant Two-view x-ray of the right leg performed, read by me there is a transverse displaced fracture through the shaft of the tibia and fibula,Just distal to the metallic implant in the tibia Three-view x-ray of the right ankle performed, read by me no acute fracture dislocation noted. CBC and electrolytes normal, liver function tests normal, troponin negative. Urine analysis was negative for infection. Patient received 1 L normal saline intravenously for dehydration, morphine 4 mg IV and Zofran 4 mg IV. Patient will be admitted to [facility] for continued medical management and possible orthopedic consultation and ORIF. Dr. Jacome has been paged, patient admitted to [facility] under Dr. Paul Patient will be admitted to [facility] for continued medical management and orthopedic consultation. Patient was unable to ambulate. Departure Diagnosis: Primary Impression: Tibia/fibula fracture Qualified Code: S82.201A - Closed fracture of right tibia and fibula, initial encounter Additional Impressions: Unable to ambulate Dehydration Condition: MILAN Krishnamurthy MD Nov 30, 2016 10:46
[2016-11-30 11:19] LABS: INR 1.05; PROTIME 13.7 Sec (12.2-14.2); PT RATIO 1.1
[2016-11-30 11:25] LABS: ALBUMIN/GLOBULIN RATIO 1.03; ANION GAP 10 (8-16)
[2016-11-30 11:30] LABS: ALANINE AMINOTRANSFERASE 14 IU/L (13-69); ALBUMIN 3.4 g/dl (3.3-4.9); ALKALINE PHOSPHATASE 113 IU/L (42-121); ASPARTATE AMINO TRANSFERASE 37 IU/L (15-46); BILIRUBIN,INDIRECT 0.4 mg/dl (0-1.1); BILIRUBIN,TOTAL 0.4 mg/dl (0.2-1.3); BLOOD UREA NITROGEN 11 mg/dl (7-20); CALCIUM 10.2 mg/dl (8.4-10.2); CARBON DIOXIDE 29 mmol/L (21-31); CHLORIDE 103 mmol/L (97-110); CREATININE 0.63 mg/dl (0.44-1.00); GLUCOSE 151 mg/dl (70-220); POTASSIUM 3.8 mmol/L (3.5-5.1); SODIUM 138 mmol/L (135-144); TOTAL PROTEIN 6.7 g/dl (6.1-8.1)
[2016-11-30 11:38] LABS: TROPONIN-I < 0.012 ng/ml (0.00-0.12)
--- NOTE | 2016-11-30 11:50 | RADRPT ---
PROCEDURE: Chest x-ray CLINICAL INDICATION: Fall with chest pain TECHNIQUE: Chest single view COMPARISON: 04/14/2016 FINDINGS: The heart is normal in size. There is stable mild atherosclerotic aortic calcification. The pulmona ry vessels are normal in caliber. The lungs are clear. The costophrenic angles are sharp. The bon es are osteopenic. No obvious rib fractures identified. There is no evidence of pneumothorax. IMPRESSION: No acute cardiopulmonary disease. Atherosclerotic aortic calcification No evidence of pneumothorax RPTAT: HH .Miguel Holt MD, MD Date Time Electronically viewed and signed by .Miguel Holt MD, on 11/30/2016 11:50 .W/
--- NOTE | 2016-11-30 11:53 | RADRPT ---
PROCEDURE: XR Pelvis. CLINICAL INDICATION: Pain TECHNIQUE: Single AP view of the pelvis. COMPARISON: No prior studies are available for comparison. FINDINGS: Single frontal view of the pelvis is obtained. The exam is limited due to underpenetration and osteo penia of the bones. There is a vertical lucency extending through the left femoral neck and head whi ch is likely artifactual. Correlation for point tenderness on the left side is recommended. Otherwis e, there are no suspected fractures. Both femoral heads anatomically seated. Pubic symphysis is inta ct. SI joints within normal limits. There is calcified fibroid in the right isai pelvis. There is a cement within the right femoral intramedullary space. The bones are markedly osteopenic. There is ex tensive bilateral vascular calcification. IMPRESSION: 1. Extremely limited study. 2. Vertical lucency extending through the left femoral head is likely artifactual. Correlation for point tenderness is recommended. 3. Otherwise there are no suspected fractures 4. Marked osteopenia of the bones 5. Cement identified in the right femoral intramedullary space. 6. Vascular calcification. 7. Fibroid RPTAT: HH .Miguel Holt MD, Date Time Electronically viewed and signed by .Miguel Holt MD, on 11/30/2016 11:53 .W/
--- NOTE | 2016-11-30 12:10 | RADRPT ---
PROCEDURE: XR, right ankle. CLINICAL INDICATION: Pain/trauma. TECHNIQUE: 2 views of the ankle were obtained for review. COMPARISON: None available. FINDINGS: The articular spaces and soft tissues are all unremarkable. The bones are osteopenic. No acute frac ture or dislocation is seen. No radiopaque foreign body is identified. IMPRESSION: 1. Unremarkable ankle x-ray series. 2. Osteopenia. RPTAT: GG .Michel Zheng MD, MD Date Time Electronically viewed and signed by .Michel Zheng MD, on 11/30/2016 12:10 .Y/
[2016-11-30 12:17] LABS: ADD UMIC NO; UR ASCORBIC ACID 20 mg/dL (NEGATIVE); UR BILIRUBIN (Dip) NEGATIVE (NEGATIVE); UR BLOOD (Dip) NEGATIVE (NEGATIVE); UR CLARITY CLEAR (CLEAR); UR COLOR YELLOW (YELLOW); UR GLUCOSE (Dip) NEGATIVE (NEGATIVE); UR KETONES (Dip) NEGATIVE (NEGATIVE); UR LEUKOCYTE ESTERASE (Dip) NEGATIVE Leu/ul (NEGATIVE); UR NITRITE (Dip) NEGATIVE (NEGATIVE); UR SPECIFIC GRAVITY (Dip) 1.011 (1.003-1.030); UR TOTAL PROTEIN (Dip) NEGATIVE (NEGATIVE); UR UROBILINOGEN (Dip) 2+ mg/dL (NEGATIVE)
--- NOTE | 2016-11-30 12:55 | RADRPT ---
PROCEDURE: XR Knee. CLINICAL INDICATION: Right knee pain following injury. TECHNIQUE: AP and oblique views of the right knee are available for review. COMPARISON: Right knee x-rays dated 06/14/2016 FINDINGS: There are postsurgical changes from right total knee arthroplasty with extended tibial and femoral h ardware. There is increased lucency along the proximal portion of the tibial hardware. There is a fr acture of the right mid tibia along the inferior margin of the hardware with mild posterior displace ment and angulation of the distal fracture fragment. There is a comminuted fracture of the right pr oximal fibular diaphysis without significant displacement. The soft tissues are unremarkable. IMPRESSION: 1. Status post right total knee arthroplasty with extended femoral and tibial components. There is a fracture of the right mid tibia along the inferior margin of the hardware with mild posterior disp lacement angulation of the distal fracture fragment. The fracture lucencies extending proximally beatris ng the medial and lateral tibial cortex. 2. Comminuted, nondisplaced fracture of the right proximal fibula. RPTAT: HH .Latoya Hernandez MD, MD Date Time Electronically viewed and signed by .Latoya Hernandez MD, MD on 11/30/2016 12:55 .G/
--- NOTE | 2016-11-30 12:58 | RADRPT ---
PROCEDURE: XR Tibia and Fibula. CLINICAL INDICATION: Trauma. Pain. TECHNIQUE: Two views of the right tibia and fibula are available for review. COMPARISON: 04/17/2016 FINDINGS: There is a left knee total arthroplasty with femoral and tibial components. There is an angulated an d mildly displaced fracture of the right tibial diaphysis just distal to the stem of the tibial pros thesis. There is mildly angulated fracture of the right proximal fibular diaphysis as well. Soft tis sues appear unremarkable. . IMPRESSION: 1. Status post right knee arthroplasty. 2. Fracture of the right proximal tibial diaphysis just distal to the stem of the tibial prosthesis . 3. Fracture of the right proximal fibular diaphysis.. RPTAT: GG .Chino Ornelas MD, Date Time Electronically viewed and signed by .Chino Ornelas MD, on 11/30/2016 12:58 .L/
[2016-11-30] MEDS ORDERED: ASPI81TA3 PO (13:21)
[2016-11-30 15:03] VITALS: TEMP 98.2
[2016-11-30 15:40] VITALS: Ht 162.6 cm; Wt 90.9 kg
[2016-11-30 16:30] VITALS: BP 136/79; RESP 18
[2016-11-30] MEDS ORDERED: ACETAMINOPHEN 325 MG TAB PO PRN (17:00)
[2016-11-30] MEDS ORDERED: NACL 0.9% 3 ML SYG IV SCH (17:00)
[2016-11-30] MEDS ORDERED: BISACODYL 10 MG SUPP PR PRN (17:00)
[2016-11-30] MEDS ORDERED: ONDANSETRON 4 MG INJ IV PRN (17:00)
[2016-11-30] MEDS ORDERED: MAGNESIUM HYDROXIDE 30ML CUP PO PRN (17:00)
[2016-11-30] MEDS ORDERED: morphine 2 MG INJ IV PRN (17:00)
--- NOTE | 2016-11-30 17:54 | QN ---
Documentation Job number: [id number] Comment H&P dictated. AVA GRAF NP Nov 30, 2016 17:54
[2016-11-30] MEDS ORDERED: ALBUTEROL 0.083% (NEB) 2.5 MG/3 ML AMP HHN PRN (18:00)
--- NOTE | 2016-11-30 19:04 | HP ---
DATE OF ADMISSION: 11/30/2016 TIME OF SERVICE: 1600. REASON FOR ADMISSION: Status post mechanical fall with right knee pain and swelling with a deformity of the left lower extremity. FAMILY HISTORY: Dr. Rob Johnson, Orthopedic Surgery. HISTORY OF PRESENT ILLNESS: This is an 89-year-old female with multiple comorbidities including chronic pain syndrome, essential hypertension, dyslipidemia, anxiety, depression, bilateral pulmonary embolism in September 2015 and peripheral vascular disease with a prior history of right total knee replacement and revision of the total knee replacement who had a mechanical fall at her residence. The patient is not the best historian. The patient verbalized that she fell down while she was trying to get out of her bed. The patient denied any loss of consciousness, syncope or chest pain prior to the fall. The patient also verbalized prior multiple falls. She was unable to ambulate after the fall and sustained pain and swelling after her injury. Hence she was brought to the emergency room. The patient reported that she lives at home with her daughter. The patient was noted to be awake and alert. However, the patient was noticed to be disoriented at times. Hence the details of the patient's history was obtained by talking to the staff, as well as reviewing the patient's prior medical records. In the emergency room, the patient underwent a right tibiofibular x-ray that showed a fracture of the right proximal tibial diaphysis just distal to the stem of the tibial prosthesis along with fracture of right proximal fibular diaphysis. The patient's right knee x-ray showed fracture of the right mid tibia along the inferior margin of the hardware with mild posterior displacement and angulation of the distal fracture fragment along with a comminuted nondisplaced fracture of the right proximal fibula. The patient was placed on bed rest. The patient was transferred to the medical surgical floor for further management. PAST MEDICAL HISTORY: Chronic pain, essential hypertension, dyslipidemia, dysthymic disorder with anxiety, bilateral pulmonary embolism, COPD, and peripheral vascular disease. PAST SURGICAL HISTORY: Right shoulder arthroscopic surgery, laparotomy for ectopic , L4-L5 laminectomy, right knee total replacement with revision of total knee replacement on 02/08/2016. HOME MEDICATIONS: 1. Lisinopril 40 mg by mouth daily. 2. Lexapro 20 mg by mouth daily. 3. Tizanidine 4 mg by mouth 3 times a day. 4. Trazodone 100 mg by mouth bedtime. 5. Cardura 1 mg by mouth bedtime. SOCIAL HISTORY: She is and lives with her daughter. Former smoker. Uses alcohol rarely. No reported drug use. ALLERGIES: IODINATED CONTRAST, PENICILLIN, ERYTHROMYCIN, AND LATEX. REVIEW OF SYSTEMS: A 12 point review of systems form and review of systems are negative other than what is mentioned history of present illness. PHYSICAL EXAMINATION: VITAL SIGNS: Temperature 99.1, pulse rate 98, respiratory rate 18, blood pressure 136/79, and oxygen saturation 94 percent on room air. GENERAL: This is an obese female, lying in bed, in no apparent distress. She looks disheveled. HEENT: Normocephalic and atraumatic. Eyes anicteric sclerae. Conjunctivae clear. ENT, nasal septum is midline. Oral mucosa is dry. NECK: Supple. No JVD noted. RESPIRATORY: Bilaterally diminished breath sounds. No adventitious breath sounds. No use of accessory muscles for respiration. CARDIAC: S1, S2 heard. Regular rate and rhythm. ABDOMEN: Soft, nontender, and nondistended. Bowel sounds bowel sounds hypoactive in all 4 quadrants. GENITOURINARY: The patient has a Poe catheter in place. EXTREMITIES: Right lower extremity is externally rotated with edema of over the right lower extremity. Right knee surgical scar in place. Right knee tenderness. Left lower extremity 1 plus pitting edema. Pedal pulses on bilateral lower extremities nonpalpable. NEUROLOGIC: The patient is awake and alert. Oriented to place and person. She was unsure about the month. She knows the year and the president. The patient is able to move toes on bilateral lower extremities. LABS/DIAGNOSTIC DATA: WBC 12.4, hemoglobin 16.5, hematocrit 49.9, and platelet count 180. Sodium 138, potassium 3.8, chloride 103, CO2 29, anion gap 10, BUN 11, creatinine 0.63, glucose 151, calcium 10.2, and troponin less than 0.012. Total protein 6.4, albumin 3.4, lipase 44. PT 13.7, INR 1.05. Right knee x-ray, status post right total knee arthroplasty with excellent femoral and tibial components. There is a fracture of the right mid tibia along the inferior margin of the hardware with mild posterior displacement and angulation of the distal fracture fragment. A comminuted nondisplaced fracture of the right proximal fibula. Chest x-ray. No acute cardiopulmonary process. Atherosclerotic aortic calcification. IMPRESSION: This is an 89-year-old female with multiple comorbidities who sustained a mechanical fall with a resultant right knee fracture. She will be admitted here for further treatment and evaluation. ASSESSMENT AND PLAN: 1. Fracture of the right mid tibia along the inferior margin along with comminuted fracture of the right proximal fibula. The patient has prior history of a total knee replacement on the right knee joint with a revision of his total knee arthroplasty. The patient's orthopedic surgeon, who did this arthroplasty does not work with [facility] anymore. Therefore, the manager regional sales orthopedic surgeon, will be consulted. The patient will be provided with adequate pain control. The patient will be maintained on bedrest. 2. Essential hypertension. The patient will be maintained on appropriate antihypertensives. The patient's home medications are not available at this time. We will wait until the patient's family bringing the patient's home medications. 3. Dyslipidemia. The patient will be maintained on a low- cholesterol diet. 4. Chronic obstructive pulmonary disease (COPD). The patient will be maintained on PRN inhaled bronchodilators. The patient has no evidence of any acute chronic obstructive pulmonary disease (COPD) exacerbation. 5. History of anxiety and depression. The patient's mood stabilizers will be resumed. The rest of the patient's management will be based on the clinical course, results of diagnostic studies, and input from consultants. Based on the patient's clinical presentation, she most probably requires more than 2 midnight stay for further management and evaluation of her clinical presentation. The case and management of this patient was fully discussed with Dr. Fuentes. Dictated By: Antonio Morelos NP /leonardo/diony /Document#: [id number] VIC
[2016-11-30 19:36] VITALS: BP 190/88; RESP 18
[2016-11-30] MEDS: traZODone 100 MG TAB PO SCH (20:15)
[2016-11-30] MEDS: hydrALAzine 20 MG INJ IV PRN (20:15)
[2016-11-30 21:00] VITALS: BP 155/78
--- NOTE | 2016-11-30 21:01 | RADRPT ---
PROCEDURE: Ultrasound of the right lower extremity venous system. CLINICAL INDICATION: Right leg pain and swelling, deep venous thrombosis TECHNIQUE: Huddleston scale with and without compression, color doppler, spectral doppler of the venous system of the right lower extremity was performed. Venous augmentation maneuvers were utilized. COMPARISON: 10/20/2015 FINDINGS: Common femoral vein: Patent. Femoral vein: Patent. Popliteal vein: The patient refused examination. Calf veins: The patient refused examination. No soft tissue abnormalities are identified. IMPRESSION: No evidence of deep venous thrombosis within the right common femoral vein or femoral vein. The patient refused examination of the right popliteal vein, right calf veins, and left lower extrem ity. RPTAT: AADD .Malik Ugarte MD, MD Date Time Electronically viewed and signed by .Malik Ugarte MD, on 11/30/2016 21:01 .B/
[2016-12-01 02:00] VITALS: BP 180/79; RESP 18
[2016-12-01] MEDS: hydrALAzine 20 MG INJ IV PRN (03:12)
[2016-12-01 04:30] VITALS: BP 150/80
[2016-12-01] MEDS ORDERED: LISINOPRIL 10 MG TAB PO SCH (09:00)
[2016-12-01] MEDS: ESCITALOPRAM 10 MG TAB PO SCH (09:05)
[2016-12-01] MEDS: ENOXAPARIN 40 MG/0.4 ML SYG SC SCH (09:11)
[2016-12-01] MEDS: HYDROCODONE/APAP (5/325) TAB PO PRN (14:34)
[2016-12-01] MEDS ORDERED: SOD CHLORIDE 0.9% 1,000 ML IV ONE (17:30)
--- NOTE | 2016-12-01 18:32 | RADRPT ---
PROCEDURE: US Lower extremity Venous. CLINICAL INDICATION: Bilateral lower extremity edema , pain TECHNIQUE: Multiple sonographic images of the bilateral lower extremity deep venous system was obt ained utilizing grayscale, color-flow, compressive sonography and doppler imaging with augmentation. The images were reviewed on a PACS workstation. COMPARISON: None. FINDINGS: There is normal compressibility and flow within the bilateral common femoral, femoral , posterior ti bial and popliteal veins. RPTAT: AA IMPRESSION: No sonographic evidence for deep venous thrombosis. .Quique Mart MD, MD Date Time Electronically viewed and signed by .Quique Mart MD, on 12/01/2016 18:32 .S/
--- NOTE | 2016-12-01 19:47 | CONS ---
DATE OF ADMISSION: 11/30/2016 DATE OF CONSULTATION: 12/01/2016 HISTORY OF PRESENT ILLNESS: Patient is an 89-year-old female, who was brought into the emergency room because of the pain and swelling involving her right leg, which developed following her ground level fall on the day of her admission. According to the available information, she suffered the ground level fall while she was trying to get out of her bed. PAST MEDICAL HISTORY: She had initial total knee replacement of her right knee and revision total knee replacement within the last 2 years. She is known to have multiple medical problems, including chronic pain syndrome, essential hypertension, dyslipidemia, anxiety and depression, history of bilateral pulmonary embolism in September 2015, and peripheral vascular disease. PHYSICAL EXAMINATION: GENERAL APPEARANCE: Revealed an 89-year-old rather obese female who is not in acute medical distress. PSYCH: My conversation with the patient is limited because of the poor memory and possibly early dementia. My physical examination was limited because of the less than ideal cooperation from the patient. EXTREMITIES: However, there is a considerable swelling in the right leg with obvious tenderness in the mid portion of the right leg. Range of motion of the right knee and right ankle cannot be tested properly. I was also unable to test the neurologic condition and motor function of the right lower extremity, however, dorsalis pedis was weakly palpable. LABORATORY: X-rays of the right leg revealed an obvious fracture through the midshaft of the tibia and fibula. The fracture was at the level where the preexisting stem of the revision tibial component ends. IMPRESSION: Periprosthetic fracture of the tibia at the level of mid shaft along with the fibular fracture at the same level. PLAN: Open reduction and internal fixation preferably utilizing plate and multiple circular cables. Because of the family's and patient's wish, we will try to contact the original surgeon for possible transfer. Dictated By: In Delia Johnson MD /leonardo/hailey /Document#: [id number]
[2016-12-01 20:04] VITALS: BP 99/48; RESP 20
[2016-12-01 21:30] VITALS: BP 110/72; PULSE 68
[2016-12-01] MEDS: traZODone 100 MG TAB PO SCH (22:36)
[2016-12-02 02:23] VITALS: BP 131/71; RESP 18
[2016-12-02 08:00] VITALS: BP 132/61; RESP 18
[2016-12-02] MEDS: ESCITALOPRAM 10 MG TAB PO SCH (08:20)
[2016-12-02] MEDS: HYDROCODONE/APAP (5/325) TAB PO PRN ×3 (08:53→21:15)
[2016-12-02] MEDS: ENOXAPARIN 40 MG/0.4 ML SYG SC SCH (09:00)
[2016-12-02 09:54] LABS: BASOPHILS % 0.4 % (0.0-2.0); EOSINOPHILS # 0.3 10^3/ul (0.0-0.5); EOSINOPHILS % 4.1 % (0.0-7.0); HEMATOCRIT 37.1 % (37.0-47.0); HEMOGLOBIN 11.7 g/dl (12.0-16.0); LYMPHOCYTES # 1.5 10^3/ul (0.8-2.9); LYMPHOCYTES % 19.5 % (15.0-51.0); MEAN CORPUSCULAR HEMOGLOBIN 29.7 pg (29.0-33.0); MEAN CORPUSCULAR HGB CONC 31.5 g/dl (32.0-37.0); MEAN CORPUSCULAR VOLUME 94.2 fl (82.0-101.0); MEAN PLATELET VOLUME 10.8 fl (7.4-10.4); MONOCYTE # 0.6 10^3/ul (0.3-0.9); MONOCYTES % 7.6 % (0.0-11.0); PLATELET COUNT 158 10^3/UL (140-415); RED BLOOD COUNT 3.94 10^6/ul (4.20-5.40); RED CELL DISTRIBUTION WIDTH 14.1 % (11.5-14.5); WHITE BLOOD COUNT 7.8 10^3/ul (4.8-10.8)
[2016-12-02 10:20] LABS: ALBUMIN 2.9 g/dl (3.3-4.9); BILIRUBIN,INDIRECT 0.4 mg/dl (0-1.1); BILIRUBIN,TOTAL 0.4 mg/dl (0.2-1.3); CALCIUM 9.7 mg/dl (8.4-10.2); CREATININE 0.87 mg/dl (0.44-1.00); POTASSIUM 3.9 mmol/L (3.5-5.1); TOTAL PROTEIN 5.8 g/dl (6.1-8.1)
[2016-12-02] MEDS ORDERED: HYDROCODONE/APAP (5/325) TAB PO STA (11:46)
[2016-12-02 14:16] VITALS: BP 131/63; RESP 18
--- NOTE | 2016-12-02 15:24 | RADRPT ---
PROCEDURE: XR Knee. CLINICAL INDICATION: Left knee pain, trauma TECHNIQUE: 2 views of the left knee were obtained. The images reviewed on a PACS workstation. COMPARISON: None. FINDINGS: The bones are very osteopenic. There is severe medial femorotibial compartment osteoarthrosis with n ear bone on bone articulation and marginal osteophyte formation. There is mild lateral and patellofe moral compartment osteoarthrosis. There is no significant joint effusion. IMPRESSION: 1. No radiographic evidence of acute osseous abnormality noting background osteopenia. 2. 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 RPTAT: UU .Eriberto Alas MD, Date Time Electronically viewed and signed by .Eriberto Alas MD, on 12/02/2016 15:24 .K/
--- NOTE | 2016-12-02 16:31 | PN ---
Date/Time of Note Date/Time of Note DATE: 12/02/16 TIME: 16:28 Assessment/Plan VTE Prophylaxis VTE Prophylaxis Intervention: LMWH Lines/Catheters IV Catheter Type (from Nrsg): Saline Lock Urinary Cath still in place: Yes Reason Cath still needed: urinary retention Assessment/Plan Chief Complaint/Hosp Course 89 yo female with h/o PE, R TKA who presents with tib/fib fracture around hardware. Pending surgery tomorrow Tib/fib fracture: - Surgery tomorrow - The patient has no active cardiac conditions and is medical cleared for surgery tomorrow without further workup or optimization - Pain control - DVT ppx Problems: Subjective 24 Hr Interval Summary Free Text/Dictation Continued pain in her leg Exam/Review of Systems Vital Signs Vitals Vital Signs Date Time Temp Pulse Resp B/P Pulse Ox O2 Delivery O2 Flow Rate FiO2 12/02/16 14:16 98.2 64 18 131/63 93 11/30/16 15:03 Room Air Intake and Output 12/01/16 12/01/16 12/02/16 14:59 22:59 06:59 Intake Total 1000 ml Balance 1000 ml Exam Constitutional: alert, oriented, well developed Psych: nl mood/affect, no complaints Head: atraumatic, normocephalic Eyes: EOMI, PERRL, nl conjunctiva, nl lids, nl sclera ENMT: nl external ears & nose, nl lips & teeth, nl nasal mucosa & septum Neck: non-tender, supple Respiratory: clear to auscultation, normal air movement Cardiovascular: nl pulses, regular rate and rhythm Gastrointestinal: nl liver, spleen, non-tender, soft Musculoskeletal: nl extremities to inspection, nl gait and stance Extremities: normal pulses Neurological: SPOOL TENDER II-XII intact, nl mental status, nl speech, nl strength Skin: nl turgor, No rash or lesions Lymph: nl lymph nodes Results Result Diagram: 12/02/16 0940 12/02/16 0940 Results 24 hrs Laboratory Tests Test 12/02/16 09:40 White Blood Count 7.8 # Red Blood Count 3.94 #L Hemoglobin 11.7 #L Hematocrit 37.1 # Mean Corpuscular Volume 94.2 Mean Corpuscular Hemoglobin 29.7 Mean Corpuscular Hemoglobin Concent 31.5 L Red Cell Distribution Width 14.1 Platelet Count 158 Mean Platelet Volume 10.8 H Neutrophils % 68.0 Lymphocytes % 19.5 Monocytes % 7.6 Eosinophils % 4.1 Basophils % 0.4 Nucleated Red Blood Cells % 0.0 Neutrophils # (Manual) 5.3 Lymphocytes # 1.5 Monocytes # 0.6 Eosinophils # 0.3 Basophils # 0.0 Nucleated Red Blood Cells # 0.0 Sodium Level 138 Potassium Level 3.9 Chloride Level 103 Carbon Dioxide Level 29 Anion Gap 10 Blood Urea Nitrogen 20 Creatinine 0.87 Glucose Level 173 Calcium Level 9.7 Total Bilirubin 0.4 Direct Bilirubin 0.00 Indirect Bilirubin 0.4 Aspartate Amino Transf (AST/SGOT) 21 Alanine Aminotransferase (ALT/SGPT) 24 Alkaline Phosphatase 75 Total Protein 5.8 L Albumin 2.9 L Globulin 2.90 Albumin/Globulin Ratio 1.00 Medications Medications Current Medications Ondansetron HCl (Zofran Inj) 4 mg Q6H PRN IV NAUSEA AND/OR VOMITING; Start 11/30 at 17:00 Acetaminophen (Tylenol Tab) 650 mg Q6H PRN PO PAIN LEVEL 1-3 OR FEVER; Start at 17:00 Acetaminophen/ Hydrocodone Bitart ([place] (5/325)) 1 tab Q6H PRN PO MODERATE PAIN LEVEL 4-6 Last administered on 12/02/16 08:53; Admin Dose 1 TAB; Start 11/30 at 17:00 Magnesium Hydroxide (Milk Of Mag) 30 ml DAILY PRN PO CONSTIPATION; Start at 17:00 Bisacodyl (Dulcolax Supp) 10 mg DAILY PRN [place] CONSTIPATION; Start 11/30/16 at 17: 00 Enoxaparin Sodium (Lovenox) 40 mg DAILY SC Last administered on 12/01/16 09:11 ; Admin Dose 40 MG; Start 12/01/16 at 09:00 Escitalopram Oxalate (Lexapro) 20 mg DAILY PO Last administered on 12/02/16 08: 20; Admin Dose 20 MG; Start 12/01/16 at 09:00 Trazodone HCl (Desyrel) 100 mg HS PO Last administered on 12/01/16 22:36; Admin Dose 100 MG; Start 11/30/16 at 21:00 Acetaminophen/ Hydrocodone Bitart ([place] (5/325)) 2 tab Q4H PRN PO SEVERE PAIN LEVEL 7-10; Start 12/02/16 at 12:00 Hydromorphone HCl (Dilaudid) 0.5 mg Q4H PRN IV PAIN; Start 12/02/16 at 13:30 MARKELL JOSEPH MD Dec 02, 2016 16:31
--- NOTE | 2016-12-02 16:32 | PN ---
Date/Time of Note Date/Time of Note DATE: 12/01/16 TIME: 16:31 Assessment/Plan VTE Prophylaxis VTE Prophylaxis Intervention: LMWH Lines/Catheters IV Catheter Type (from Nrsg): Saline Lock Urinary Cath still in place: Yes Reason Cath still needed: urinary retention Assessment/Plan Chief Complaint/Hosp Course 89 yo female with h/o PE, R TKA who presents with tib/fib fracture around hardware. Pending surgery tomorrow Tib/fib fracture: - Dr Johnson consulted. Patient requesting transfer to hospital were Dr Hair zurita previous TKA - The patient has no active cardiac conditions and is medical cleared for surgery tomorrow without further workup or optimization - Pain control - DVT ppx Problems: Subjective 24 Hr Interval Summary Free Text/Dictation Patient complainign of pain in affected leg Requests transfer to hospital were previous orhotpedist performed surgery Exam/Review of Systems Vital Signs Vitals Vital Signs Date Time Temp Pulse Resp B/P Pulse Ox O2 Delivery O2 Flow Rate FiO2 12/02/16 14:16 98.2 64 18 131/63 93 11/30/16 15:03 Room Air Intake and Output 12/01/16 12/01/16 12/02/16 14:59 22:59 06:59 Intake Total 1000 ml Balance 1000 ml Exam Constitutional: alert, oriented, well developed Results Result Diagram: 12/02/16 0940 12/02/16 0940 Results 24 hrs Laboratory Tests Test 12/02/16 09:40 White Blood Count 7.8 # Red Blood Count 3.94 #L Hemoglobin 11.7 #L Hematocrit 37.1 # Mean Corpuscular Volume 94.2 Mean Corpuscular Hemoglobin 29.7 Mean Corpuscular Hemoglobin Concent 31.5 L Red Cell Distribution Width 14.1 Platelet Count 158 Mean Platelet Volume 10.8 H Neutrophils % 68.0 Lymphocytes % 19.5 Monocytes % 7.6 Eosinophils % 4.1 Basophils % 0.4 Nucleated Red Blood Cells % 0.0 Neutrophils # (Manual) 5.3 Lymphocytes # 1.5 Monocytes # 0.6 Eosinophils # 0.3 Basophils # 0.0 Nucleated Red Blood Cells # 0.0 Sodium Level 138 Potassium Level 3.9 Chloride Level 103 Carbon Dioxide Level 29 Anion Gap 10 Blood Urea Nitrogen 20 Creatinine 0.87 Glucose Level 173 Calcium Level 9.7 Total Bilirubin 0.4 Direct Bilirubin 0.00 Indirect Bilirubin 0.4 Aspartate Amino Transf (AST/SGOT) 21 Alanine Aminotransferase (ALT/SGPT) 24 Alkaline Phosphatase 75 Total Protein 5.8 L Albumin 2.9 L Globulin 2.90 Albumin/Globulin Ratio 1.00 Medications Medications Current Medications Ondansetron HCl (Zofran Inj) 4 mg Q6H PRN IV NAUSEA AND/OR VOMITING; Start 11/30 at 17:00 Acetaminophen (Tylenol Tab) 650 mg Q6H PRN PO PAIN LEVEL 1-3 OR FEVER; Start at 17:00 Acetaminophen/ Hydrocodone Bitart ([place] (5/325)) 1 tab Q6H PRN PO MODERATE PAIN LEVEL 4-6 Last administered on 12/02/16 08:53; Admin Dose 1 TAB; Start 11/30 at 17:00 Magnesium Hydroxide (Milk Of Mag) 30 ml DAILY PRN PO CONSTIPATION; Start at 17:00 Bisacodyl (Dulcolax Supp) 10 mg DAILY PRN [place] CONSTIPATION; Start 11/30/16 at 17: 00 Enoxaparin Sodium (Lovenox) 40 mg DAILY SC Last administered on 12/01/16 09:11 ; Admin Dose 40 MG; Start 12/01/16 at 09:00 Escitalopram Oxalate (Lexapro) 20 mg DAILY PO Last administered on 12/02/16 08: 20; Admin Dose 20 MG; Start 12/01/16 at 09:00 Trazodone HCl (Desyrel) 100 mg HS PO Last administered on 12/01/16 22:36; Admin Dose 100 MG; Start 11/30/16 at 21:00 Acetaminophen/ Hydrocodone Bitart ([place] (5/325)) 2 tab Q4H PRN PO SEVERE PAIN LEVEL 7-10; Start 12/02/16 at 12:00 Hydromorphone HCl (Dilaudid) 0.5 mg Q4H PRN IV PAIN; Start 12/02/16 at 13:30 MARKELL JOSEPH MD Dec 02, 2016 16:32
[2016-12-02] MEDS: HYDROmorphONE 1 MG/ML SYG IV PRN (18:18)
[2016-12-02 19:27] VITALS: BP 128/64; RESP 20
[2016-12-02] MEDS: traZODone 100 MG TAB PO SCH (21:15)
[2016-12-03 01:46] VITALS: BP 121/78; RESP 19
[2016-12-03 08:09] VITALS: BP 145/64; RESP 18
[2016-12-03] MEDS: HYDROCODONE/APAP (5/325) TAB PO PRN ×3 (08:36→21:00)
[2016-12-03] MEDS: ESCITALOPRAM 10 MG TAB PO SCH (08:37)
[2016-12-03] MEDS: ENOXAPARIN 40 MG/0.4 ML SYG SC SCH (08:40)
[2016-12-03 14:20] VITALS: BP 166/69; RESP 18
--- NOTE | 2016-12-03 16:28 | PN ---
Date/Time of Note Date/Time of Note DATE: 12/03/16 TIME: 16:27 Assessment/Plan VTE Prophylaxis VTE Prophylaxis Intervention: LMWH Lines/Catheters IV Catheter Type (from Nrsg): Saline Lock Urinary Cath still in place: Yes Reason Cath still needed: urinary retention Assessment/Plan Chief Complaint/Hosp Course 89 yo female with h/o PE, R TKA who presents with tib/fib fracture around hardware Tib/fib fracture: - Dr Johnson consulted. Patient requesting transfer to [facility] where original surgery performed operation - The patient has no active cardiac conditions and is medical cleared for surgery tomorrow without further workup or optimization if needs to do it here - Pain control - DVT ppx Depression: - Continue lexapro Problems: Subjective 24 Hr Interval Summary Free Text/Dictation Patient seems comfortable, but very frustrated by lack of plan Requesting transfer to [facility] Exam/Review of Systems Vital Signs Vitals Vital Signs Date Time Temp Pulse Resp B/P Pulse Ox O2 Delivery O2 Flow Rate FiO2 12/03/16 14:20 97.9 69 18 166/69 96 11/30/16 15:03 Room Air Intake and Output 12/02/16 12/02/16 12/03/16 15:00 23:00 07:00 Intake Total 200 ml 1320 ml Output Total 600 ml 50 ml Balance -400 ml 1270 ml Results Result Diagram: 12/02/16 0940 12/02/16 0940 Medications Medications Current Medications Ondansetron HCl (Zofran Inj) 4 mg Q6H PRN IV NAUSEA AND/OR VOMITING; Start 11/30 at 17:00 Acetaminophen (Tylenol Tab) 650 mg Q6H PRN PO PAIN LEVEL 1-3 OR FEVER; Start at 17:00 Acetaminophen/ Hydrocodone Bitart (Pablo (5/325)) 1 tab Q6H PRN PO MODERATE PAIN LEVEL 4-6 Last administered on 12/03/16t 08:36; Admin Dose 1 TAB; Start 11/30/16 at 17:00 Magnesium Hydroxide (Milk Of Mag) 30 ml DAILY PRN PO CONSTIPATION; Start at 17:00 Bisacodyl (Dulcolax Supp) 10 mg DAILY PRN [place] CONSTIPATION; Start 11/30/16 at 17: 00 Enoxaparin Sodium (Lovenox) 40 mg DAILY SC Last administered on 12/03/16 08:40 ; Admin Dose 40 MG; Start 12/01/16 at 09:00 Escitalopram Oxalate (Lexapro) 20 mg DAILY PO Last administered on 12/03/16 08 :37; Admin Dose 20 MG; Start 12/01/16 at 09:00 Trazodone HCl (Desyrel) 100 mg HS PO Last administered on 12/02/16 21:15; Admin Dose 100 MG; Start 11/30/16 at 21:00 Acetaminophen/ Hydrocodone Bitart (Pablo (5/325)) 2 tab Q4H PRN PO SEVERE PAIN LEVEL 7-10 Last administered on 12/02/16 21:15; Admin Dose 2 TAB; Start 12/02/16 at 12:00 Hydromorphone HCl (Dilaudid) 0.5 mg Q4H PRN IV PAIN Last administered on 18:18; Admin Dose 0.5 MG; Start 12/02/16 at 13:30 MARKELL JOSEPH MD Dec 03, 2016 16:28
[2016-12-03] MEDS: HYDROmorphONE 1 MG/ML SYG IV PRN (17:53)
[2016-12-03] MEDS: traZODone 100 MG TAB PO SCH (20:57)
[2016-12-03 21:12] VITALS: BP 138/63; RESP 18
[2016-12-04 03:03] VITALS: BP 135/63; RESP 16
[2016-12-04 07:16] VITALS: BP 159/67; RESP 18
[2016-12-04] MEDS: ESCITALOPRAM 10 MG TAB PO SCH (08:57)
[2016-12-04] MEDS: ENOXAPARIN 40 MG/0.4 ML SYG SC SCH (08:59)
[2016-12-04] MEDS: HYDROCODONE/APAP (5/325) TAB PO PRN (09:02)
[2016-12-04] MEDS: HYDROmorphONE 1 MG/ML SYG IV PRN ×4 (09:38→19:59)
[2016-12-04] MEDS ORDERED: HYDROmorphONE 1 MG/ML SYG IV STA (10:20)
[2016-12-04 14:02] VITALS: BP 172/74; RESP 18
[2016-12-04 15:20] LABS: BASOPHILS % 0.5 % (0.0-2.0); EOSINOPHILS # 0.3 10^3/ul (0.0-0.5); EOSINOPHILS % 4.4 % (0.0-7.0); HEMATOCRIT 36.6 % (37.0-47.0); HEMOGLOBIN 11.4 g/dl (12.0-16.0); LYMPHOCYTES # 1.5 10^3/ul (0.8-2.9); LYMPHOCYTES % 23.6 % (15.0-51.0); MEAN CORPUSCULAR HEMOGLOBIN 29.2 pg (29.0-33.0); MEAN CORPUSCULAR HGB CONC 31.1 g/dl (32.0-37.0); MEAN CORPUSCULAR VOLUME 93.8 fl (82.0-101.0); MEAN PLATELET VOLUME 10.7 fl (7.4-10.4); MONOCYTE # 0.6 10^3/ul (0.3-0.9); MONOCYTES % 10.2 % (0.0-11.0); NEUTROPHILS % 60.8 % (39.0-77.0); PLATELET COUNT 163 10^3/UL (140-415); RED CELL DISTRIBUTION WIDTH 13.8 % (11.5-14.5); WHITE BLOOD COUNT 6.2 10^3/ul (4.8-10.8)
[2016-12-04 15:23] VITALS: BP 152/67
[2016-12-04 15:33] LABS: CREATININE 0.59 mg/dl (0.44-1.00)
--- NOTE | 2016-12-04 16:50 | PN ---
Date/Time of Note Date/Time of Note DATE: 12/04/16 TIME: 16:48 Assessment/Plan VTE Prophylaxis VTE Prophylaxis Intervention: LMWH Lines/Catheters IV Catheter Type (from Nrsg): Saline Lock Assessment/Plan Chief Complaint/Hosp Course 89 yo female with h/o PE, R TKA who presents with tib/fib fracture around hardware Tib/fib fracture: - Dr Johnson consulted. Patient requesting transfer to [facility] where original surgery performed operation - The patient has no active cardiac conditions and is medical cleared for surgery without further workup or optimization if needs to do it here - Pain control Depression: - Continue lexapro PPx- Lovenox Problems: Subjective 24 Hr Interval Summary Musculoskeletal: bone/joint pain Exam/Review of Systems Vital Signs Vitals Vital Signs Date Time Temp Pulse Resp B/P Pulse Ox O2 Delivery O2 Flow Rate FiO2 12/04/16 15:23 152/67 12/04/16 14:02 98.3 70 18 97 11/30/16 15:03 Room Air Intake and Output 12/03/16 12/03/16 12/04/16 15:00 23:00 07:00 Intake Total 500 ml 920 ml 360 ml Output Total 200 ml 250 ml 400 ml Balance 300 ml 670 ml -40 ml Exam Constitutional: alert Respiratory: clear to auscultation Cardiovascular: regular rate and rhythm Gastrointestinal: soft, No distended Genitourinary - Female: nl external genitalia Musculoskeletal: No nl extremities to inspection Results Result Diagram: 12/04/16 1449 12/04/16 1449 Results 24 hrs Laboratory Tests Test 12/04/16 14:49 White Blood Count 6.2 # Red Blood Count 3.90 L Hemoglobin 11.4 L Hematocrit 36.6 L Mean Corpuscular Volume 93.8 Mean Corpuscular Hemoglobin 29.2 Mean Corpuscular Hemoglobin Concent 31.1 L Red Cell Distribution Width 13.8 Platelet Count 163 Mean Platelet Volume 10.7 H Neutrophils % 60.8 Lymphocytes % 23.6 Monocytes % 10.2 Eosinophils % 4.4 Basophils % 0.5 Nucleated Red Blood Cells % 0.0 Neutrophils # (Manual) 3.8 Lymphocytes # 1.5 Monocytes # 0.6 Eosinophils # 0.3 Basophils # 0.0 Nucleated Red Blood Cells # 0.0 Blood Urea Nitrogen 16 Creatinine 0.59 Medications Medications Current Medications Ondansetron HCl (Zofran Inj) 4 mg Q6H PRN IV NAUSEA AND/OR VOMITING; Start 11/30 at 17:00 Acetaminophen (Tylenol Tab) 650 mg Q6H PRN PO PAIN LEVEL 1-3 OR FEVER; Start at 17:00 Acetaminophen/ Hydrocodone Bitart (Aurora (5/325)) 1 tab Q6H PRN PO MODERATE PAIN LEVEL 4-6 Last administered on 12/03/16 08:36; Admin Dose 1 TAB; Start 11/30/16 at 17:00 Magnesium Hydroxide (Milk Of Mag) 30 ml DAILY PRN PO CONSTIPATION; Start at 17:00 Bisacodyl (Dulcolax Supp) 10 mg DAILY PRN [place] CONSTIPATION; Start 11/30/16 at 17: 00 Enoxaparin Sodium (Lovenox) 40 mg DAILY SC Last administered on 12/04/16 08:59 ; Admin Dose 40 MG; Start 12/01/16 at 09:00 Escitalopram Oxalate (Lexapro) 20 mg DAILY PO Last administered on 12/04/16 08 :57; Admin Dose 20 MG; Start 12/01/16 at 09:00 Trazodone HCl (Desyrel) 100 mg HS PO Last administered on 12/03/16 20:57; Admin Dose 100 MG; Start 11/30/16 at 21:00 Acetaminophen/ Hydrocodone Bitart (Aurora (5/325)) 2 tab Q4H PRN PO SEVERE PAIN LEVEL 7-10 Last administered on 12/04/16 09:02; Admin Dose 2 TAB; Start at 12:00 Hydromorphone HCl (Dilaudid) 1 mg Q4H PRN IV PAIN Last administered on 15:28; Admin Dose 1 MG; Start 12/04/16 at 13:00 EARLENE GARCES Dec 04, 2016 16:49
[2016-12-04] MEDS ORDERED: VITAMIN A & D 5 GM OINT PACKET TOP ONE (17:16)
--- NOTE | 2016-12-04 17:56 | DS ---
Date/Time of Note Date/Time of Note DATE: 12/04/16 TIME: 17:55 Discharge Summary Admission/Discharge Info Admit Date/Time Nov 30, 2016 at 13:18 Discharge Date/Time December 04, 2016 Discharge Diagnosis Mechanical fall with proximal Tib/fib fracture distal to stem of the tibial prosthesis -Patient transferred to [facility] where prosthesis was placed Depression: - Continue lexapro Patient Condition: Fair Hospital Course Patient is a 89-year-old female with a history of multiple comorbidities including chronic pain syndrome, essential hypertension, dyslipidemia, anxiety, depression, bilateral pulmonary embolism in September 2015 and peripheral vascular disease with a prior history of right total knee replacement and revision of the total knee replacement who had a mechanical fall at her residence. Patient had prior surgery at [facility]. Patient was found to have a fracture in the proximal right tibia distal to the stem of the tibial prosthesis. Patient was seen by Dr. Johnson of orthopedics, patient family wanted to be transferred to [facility] where her orthopedist resides. Patient did have significant pain which was controlled with medications. On the day of discharge patient's vitals, labs and physical exam are stable. Home Meds Reported Medications Aspirin* (Aspirin* Chew) 81 Mg Tab.chew, 81 MG PO DAILY, TAB.CHEW 11/30/16 Discontinued Reported Medications Magnesium Hydroxide* (Milk Of Magnesia*) 400 Mg/5 Ml Oral.susp, 30 ML PO DAILY Y for CONSTIPATION, ML 02/08/16 Clonidine Hcl* (Clonidine Hcl*) 0.1 Mg Tab, 0.1 MG PO Q6 Y for ELEVATED BLOOD PRESSURE, TAB 02/08/16 Doxazosin Mesylate* (Cardura*) 1 Mg Tablet, 1 MG PO QHS, #30 TAB 02/08/16 Multivitamins* (Theragran*) 1 Tab Tab, 1 TAB PO DAILY, TAB 02/08/16 Ranitidine Hcl* (Zantac*) 150 Mg Tablet, 150 MG PO BID, #60 TAB 02/08/16 Lisinopril* (Lisinopril*) 40 Mg Tablet, 40 MG PO DAILY, #30 TAB 02/08/16 Lactulose* (Lactulose*) 20 Gm/30 Ml Solution, 20 GM PO DAILY Y for CONSTIPATION , ML 02/08/16 Diazepam* (Valium*) 5 Mg Tablet, 5 MG PO QHS, TAB 10/18/15 Escitalopram Oxalate* (Lexapro*) 20 Mg Tablet, 20 MG PO DAILY, #30 TAB 10/18/15 Tizanidine Hcl* (Tizanidine Hcl*) 4 Mg Tablet, 4 MG PO TID Y for SPASTICITY, TAB 10/18/15 Trazodone Hcl* (Trazodone Hcl*) 100 Mg Tablet, 100 MG PO QHS, #30 TAB 05/12/15 Discontinued Scripts Na Phos,M-B/Na Phos,Di-Ba (Bl Enema Single) 135 Ml Enema, 133 ML [place] DAILY Y for CONSTIPATION for 1 Day, ENEMA Prov:MILAGROS KLEIN MD 10/26/15 Ipratropium-Albuterol (Ipratropium-Albuterol) 0.5-3 Mg/3 Ml Ampul.neb, 3 ML HHN Q4H RESP THERAPY Y for SHORTNESS OF BREATH for 1 Day Prov:MILAGROS KLEIN MD 10/26/15 Hydrocodone Bit/Acetaminophen (Anexsia 5-325 Mg Tablet) 1 Tab Tablet, 2 TAB PO Q6H Y for SEVERE PAIN LEVEL 7-10 for 1 Day, TAB Prov:MILAGROS KLEIN MD 10/26/15 Docusate Sodium* (Colace*) 100 Mg Capsule, 100 MG PO BID for 1 Day, CAP Prov:MILAGROS KLEIN MD 10/26/15 Celecoxib* (Celebrex*) 200 Mg Capsule, 200 MG PO DAILY for 1 Day, CAP Prov:MILAGROS KLEIN MD 10/26/15 Bisacodyl* (Bisacodyl*) 10 Mg Supp, 10 MG [place] Q12H Y for CONSTIPATION for 1 Day, SUPP Prov:MILAGROS KLEIN MD 10/26/15 Acetaminophen* (Tylenol*) 325 Mg Tablet, 650 MG PO Q4H Y for PAIN AND OR ELEVATED TEMP for 1 Day, TAB Prov:MILAGROS KLEIN MD 10/26/15 Follow-up Plan Follow-up with physicians at [facility] Primary Care Provider Care Physician No Primary Time spent on discharge: > 30 minutes EARLENE GARCES Dec 04, 2016 17:56 (82.0-101.0) Mean Corpuscular Hemoglobin 29.2pg (29.0-33.0) Mean Corpuscular Hemoglobin Concent 31.1g/dl (32.0-37.0) Red Cell Distribution Width 13.8% (11.5-14.5) Platelet Count 34435^3/UL (140-415) Mean Platelet Volume 10.7fl (7.4-10.4) Neutrophils % 60.8% (39.0-77.0) Lymphocytes % 23.6% (15.0-51.0) Monocytes % 10.2% (0.0-11.0) Eosinophils % 4.4% (0.0-7.0) Basophils % 0.5% (0.0-2.0) Nucleated Red Blood Cells % 0.0/100WBC (0.0-0.0) Neutrophils # (Manual) 3.810^3/ul (1.7-7.5) Lymphocytes # 1.510^3/ul (0.8-2.9) Monocytes # 0.610^3/ul (0.3-0.9) Eosinophils # 0.310^3/ul (0.0-0.5) Basophils # 0.010^3/ul (0.0-0.1) Nucleated Red Blood Cells # 0.010^3/ul (0.0-0.0) Blood Urea Nitrogen 16mg/dl (7-20) Creatinine 0.59mg/dl (0.44-1.00) EARLENE GARCES Dec 04, 2016 17:56
[2016-12-04] MEDS ORDERED: morphine 10 MG INJ ONE (19:53)
[2016-12-04 20:00] VITALS: BP 147/74; PULSE 66; RESP 20
--- NOTE | 2016-12-04 22:21 | PN ---
DATE: 12/04/2016 Following my initial evaluation on the November, preoperative evaluation was carried out, and on the November, patient was initially scheduled for surgical treatment, namely open reduction and internal fixation of the periprosthetic fracture involving the midshaft of the right tibia. However, patient and the family members were somewhat reluctant to have surgery done and after consultation with Dr. Nguyễn, who was the original surgeon who did original total knee replacement and subsequent revision total knee replacement on this patient, patient wanted to be transferred to [facility], and patient was accepted for transfer on the November. Patient was to be transferred to [facility] as of 04 December 2016. For the stability during the transfer, right lower extremity was taken out of the splint and immobilized in a posterior splint under IV sedation. Dictated By: Rob Johnson MD /[email or web address]/[email or web address] /Document#: [id number]
== END 2016-12-04 20:25 | disposition short-term general hospital (02) | DRG 563 ==
LOC: E/R 09:05 → MS2 13:18
PROVIDERS: ADMIT Internal Medicine; ATTEND Internal Medicine
DX: S82.191A Other fracture of upper end of right tibia, initial encounter for closed fracture (principal); J44.9 Chronic obstructive pulmonary disease, unspecified; I73.9 Peripheral vascular disease, unspecified; M97.11XA Periprosthetic fracture around internal prosthetic right knee joint, initial encounter; I10 Essential (primary) hypertension; M81.0 Age-related osteoporosis without current pathological fracture; E78.5 Hyperlipidemia, unspecified; G89.4 Chronic pain syndrome; F34.1 Dysthymic disorder; F41.8 Other specified anxiety disorders; R33.9 Retention of urine, unspecified; Z86.711 Personal history of pulmonary embolism; Z91.81 History of falling; Z88.0 Allergy status to penicillin; Z87.891 Personal history of nicotine dependence; W06.XXXA Fall from bed, initial encounter; Y92.003 Bedroom of unspecified non-institutional (private) residence as the place of occurrence of the external cause
CPT/HCPCS: 71010; 72170; 73560; 73562; 73590; 80053; 81003; 82565; 83690; 84484; 84520; 85025; 85610; 93005; 93970; 96374; 96375; J0360; J1170; J1650; J2270; J2405; J7030